=== PATIENT | female | born 1940 | race Caucasian/White ===

== ENCOUNTER 2017-08-07 10:22 | Outpatient (CLI) | payer MEDICARE ==
--- NOTE | 2017-08-07 12:27 | RAD ---
RIGHT HIP TWO VIEWS: HISTORY: Right hip pain. FINDINGS: Mild joint space narrowing and osteophytosis are present. Osteophyte is favored to account for the acute angulation at the superior margin of the femoral neck. The cortical trabeculae are intact acr oss the subcapital level. No acute fracture or dislocation is evident. IMPRESSION: Mild osteoarthritic changes, right hip. POS: [facility]
== END 2017-08-07 10:23 | disposition home or self-care (01) ==
LOC: RAD 10:22
PROVIDERS: ATTEND Family Medicine
DX: M25.551 Pain in right hip (principal); M16.11 Unilateral primary osteoarthritis, right hip

== ENCOUNTER 2017-10-13 11:11 | Emergency (ER) | payer MEDICARE ==
[2017-10-13 11:45] LABS: #Basophils 0.1 thou/uL (0.0-0.2); #Eosinphils 0.3 thou/uL (0.0-0.7); #Lymphocytes 1.7 thou/uL (1.20-3.40); #Monocytes 0.5 thou/uL (0.11-0.59); #Neutrophils 3.1 thou/uL (1.40-6.50); %Basophils 1.3 % (0.0-1.0); %Eosinophils 4.7 % (0.0-10.0); %Lymphocytes 30.6 % (21.0-51.0); %Monocytes 9.2 % (0.0-10.0); Hematocrit 41.8 % (36.0-47.0); Mean Platelet Volume 7.4 fL (7.4-10.4); Red Blood Cell (RBC) Count 4.73 mill/uL (4.20-5.40); White Blood Cell (WBC) Count 5.7 thou/uL (4.8-10.8)
[2017-10-13 12:09] LABS: ALT (SGPT) 26 U/L (8-55); AST (SGOT) 30 U/L (5-34); Alkaline Phosphatase 62 U/L (40-150); Anion Gap 13 mmol/L (10-20); BUN (Urea Nitrogen) 15 mg/dL (9.8-20.1); Bilirubin, Total 0.7 mg/dL (0.2-1.2); CK (CPK) 129 U/L (29-168); Calc. Creatinine Clearance 0 mL/min (70-130); Calcium 10.1 mg/dL (7.8-10.44); Carbon Dioxide 23 mmol/L (23-31); Chloride 102 mmol/L (98-107); Estimated GFR-MDRD 49; Globulin 3.1 g/dL (2.4-3.5); Protein, Total 7.8 g/dL (6.0-8.3)
[2017-10-13 12:12] LABS: Troponin I Less than 0.010 ng/mL (< 0.028)
--- NOTE | 2017-10-13 15:51 | RAD ---
PORTABLE CHEST: 10/13/17 HISTORY: Fell onto right side. COMPARISON: Multiple previous exams. There is a definite discrepancy in the chest x-ray on current study as compared to older exams where it is not possible that these are the same patient. This was thoroughly vetted through registration w sheela rechecked the patient and it is assured that the patient is indeed Katelyn Deras. It is therefore l ikely that multiple old exams were placed under an incorrect patient. The heart size is borderline. There are atherosclerotic changes of the aorta. The lungs are clear of infiltrates. There is a scoliotic change of the spine. IMPRESSION: 1. No active intrathoracic disease. 2. Marked scoliosis. POS: [facility]
== END 2017-10-13 13:09 | disposition home or self-care (01) ==
LOC: ERS 11:11
DX: R00.2 Palpitations (principal); R07.89 Other chest pain; I10 Essential (primary) hypertension; I48.91 Unspecified atrial fibrillation
CPT/HCPCS: 71010; 80053; 82553; 83880; 84484; 85025; 93005; 94760

== ENCOUNTER 2018-01-02 17:02 | Inpatient (IN) | payer MEDICARE ==
[2018-01-02 19:36] LABS: #Lymphocytes 0.7 thou/uL (1.20-3.40); #Monocytes 0.4 thou/uL (0.11-0.59); #Neutrophils 10.8 thou/uL (1.40-6.50); %Basophils 0.2 % (0.0-1.0); %Eosinophils 0.2 % (0.0-10.0); %Monocytes 2.9 % (0.0-10.0); %Neutrophils 90.8 % (42.0-75.0); Hemoglobin 15.3 g/dL (12.0-16.0); Mean Corpuscular HGB CONC 34.7 g/dL (32.0-36.0); Mean Corpuscular Hemoglobin 30.3 pg (27.0-31.0); Mean Corpuscular Volume 87.5 fl (81.0-99.0); Mean Platelet Volume 7.4 fL (7.4-10.4); Platelet Count 311 thou/uL (130-400); RBC Distribution Width 10.8 % (11.5-14.5); Red Blood Cell (RBC) Count 5.06 mill/uL (4.20-5.40); White Blood Cell (WBC) Count 11.9 thou/uL (4.8-10.8)
[2018-01-02 20:03] LABS: ALT (SGPT) 20 U/L (8-55); AST (SGOT) 27 U/L (5-34); Albumin 4.9 g/dL (3.4-4.8); Alkaline Phosphatase 66 U/L (40-150); Anion Gap 16 mmol/L (10-20); BUN (Urea Nitrogen) 16 mg/dL (9.8-20.1); Bilirubin, Total 1.3 mg/dL (0.2-1.2); Calc. Creatinine Clearance 0 mL/min (70-130); Calcium 10.1 mg/dL (7.8-10.44); Carbon Dioxide 27 mmol/L (23-31); Chloride 97 mmol/L (98-107); Estimated GFR-MDRD 54; Globulin 3.1 g/dL (2.4-3.5); Glucose 106 mg/dL (83-110); Lipase 21 U/L (8-78); Potassium 4.4 mmol/L (3.5-5.1); Sodium 136 mmol/L (136-145)
[2018-01-02] MEDS ORDERED: Benzocaine 20% Spray 60 ML CAN ONE (20:51)
[2018-01-02] MEDS ORDERED: Oxymetazoline HCl 0.05% ( 15 ML ) ONE (20:51)
--- NOTE | 2018-01-02 20:52 | RAD ---
ABDOMEN TWO VIEW WITH ONE VIEW CHEST X-RAY 01/02/18 HISTORY: Pain. Evaluate for obstruction. COMPARISON: Chest radiograph from 10/13/17. FINDINGS: There is either an extrapleural density right lung apex or old right sided rib fracture. Extensive S- shaped scoliosis thoracolumbar spine. There are multiple fluid filled levels throughout the abdomen as well as within the left upper quadra nt. No definite free intraperitoneal gas. Gas is seen within the rectal vault. IMPRESSION: Multiple fluid filled levels suggesting either an ileus or a low grade small bowel obstruction. CT ma y be beneficial. POS: [facility]
[2018-01-02 20:58] LABS: Bilirubin Small (Negative); Blood, Urine Negative (Negative); Clarity CLEAR (Clear); Glucose, Urine (Dipstick) Negative (Negative); Leukocyte Small (Negative); Nitrite Negative (Negative); Protein, Urine (Dipstick) Trace mg/dL (Neg-Trace); Specific Gravity, Urine 1.028 (1.002-1.036); Urobilinogen 0.2 mg/dL (0.2-1.0)
[2018-01-02 21:02] LABS: Bacteria/HPF None Seen HPF (None Seen); Hyaline Casts/LPF 0-3 HYALINE CAST LPF (0-3 Hyaline); Pathc Cast-AUWi Flag 0.13 (0-2.49); Squamous Epithelial 0-3 HPF (0-3)
--- NOTE | 2018-01-03 00:01 | HP ---
PRIMARY CARE PHYSICIAN: Dr. Camille August. CHIEF COMPLAINT: Severe abdominal pain and vomiting. HISTORY OF PRESENT ILLNESS: Ms. Deras is a very pleasant 77-year-old female that has a history of hyp ertension and atrial fibrillation. She was in her usual state of health until this morning. She say s she got up to go to the bathroom and noticed some fairly severe pain in her abdomen. She says she passed some gas and it seems like it got better. She went back to sleep and then around 9:00 in the morning, she got up to have breakfast and then said she started having very severe abdominal pain and severe cramping and then by 3:00 p.m., she started having very intense pain and vomited twice at josie e and then she called EMS and they brought her to the emergency room where she vomited once again. S he says that the pain has been very cramping intense pain in the lower abdomen. When asked if she harding s had a bowel movement, she says she did have a bowel movement this morning, but it was very hard sto ol and this was around 7:30 in the a.m. She says that she has had a bowel obstruction before it was back in 2005 she believes when she had a bladder suspension surgery, and at that time it did require surgical correction for the obstruction. She says this was done in [place]. Other symptoms include feeling weak and lightheaded, but no chest pain or shortness of breath. REVIEW OF SYSTEMS: Constitutional: Again, no fevers, no chills, no night sweats, no weight loss. H EENT: She denies any headaches, no dizziness, no visual changes. She has had some lightheadedness. No sore throat, no rhinorrhea, no neck pain, no adenopathy. Pulmonary: No hemoptysis, no cough, no wheezing. Cardiovascular: She denies any chest pain, no shortness of breath, no PND, no orthopnea. Gastrointestinal: As the history of present illness. Genitourinary: No urinary frequency, hematu macairo, no hesitancy. Neurologic: No focal weakness, numbness or seizures. Psychiatric: No symptoms of anxiety or depression. Skin and Integument: No skin changes. No rash. PAST MEDICAL HISTORY: Significant for hypertension and atrial fibrillation. PAST SURGICAL HISTORY: She has had a hysterectomy, tonsillectomy, bladder suspension surgery, and wh at sounds like an exploratory lap and lysis of adhesions. SOCIAL HISTORY: She is a nonsmoker. She occasionally drinks. She is . She lives alone. Ishaan mahan is here accompanied by her daughter. CODE STATUS: DO NOT RESUSCITATE. FAMILY HISTORY: Significant for a father who has prostate cancer. Mother who has heart disease. ALLERGIES: CODEINE which causes nausea. MEDICATIONS: Eliquis 500 mg twice a day. PHYSICAL EXAMINATION: GENERAL: She is alert and oriented. She appears to be in some distress due to the NG tube. She is oriented to person, place and time. VITAL SIGNS: Blood pressure was 120/84, heart rate 87, respiratory rate of 18, temperature is 98.3. HEENT: Pupils are equal, round, and reactive. Extraocular muscles are intact. Sclerae are anicteri c. Throat: There is no erythema, no exudates. NECK: No adenopathy, no bruits. LUNGS: Clear to auscultation. There is no wheezing, no rales. CARDIOVASCULAR: She has a normal S1 and S2. No S3 or S4. No murmurs, clicks or rubs. ABDOMEN: Slightly distended, soft. Positive for bowel sounds. There is no rebound, no guarding and she did have some mild lower abdominal tenderness. EXTREMITIES: There is no clubbing, cyanosis, no edema. NEUROLOGICALLY: The exam is nonfocal. SKIN/INTEGUMENT: There are no skin changes. No rash. LABORATORY AND X-RAY: White blood cell count 11.9, hemoglobin 15.3, hematocrit is 44.2, platelet cou nt is 311. Sodium 136, potassium 4.4, chloride is 97, CO2 is 27, BUN of 16, creatinine 1.0, glucose is 106. Urinalysis was significant for small bilirubin and 4-6 white blood cells. She had an abdomi nal series which was significant for some dilated loops of bowel suggestive of an ileus or low grade small-bowel obstruction. ASSESSMENT AND PLAN: 1. This is a 77-year-old female that presents with severe cramping abdominal pain and vomiting. She has got radiographic evidence of early ileus or small-bowel obstruction. She also has a history of atrial fibrillation, on anticoagulation. She will be admitted to the med/surg floor. She will be le ft n.p.o. We will continue the NG tube with low intermittent suction. Place her on fluid and electr olytes replacement. We will consult General Surgery in the a.m. in the event that she requires surge ry. Repeat an abdominal series film in the morning as well as serial abdominal exams. 2. Atrial fibrillation. Her heart rate is controlled. She appears to be in sinus rhythm. Since sh e will be n.p.o., we will place her on full dose Lovenox for stroke prophylaxis and she will also be placed on IV Pepcid.
[2018-01-03 00:26] VITALS: BMI 21.9
[2018-01-03] MEDS ORDERED: Ondansetron ODT 4 MG TAB SL PRN (00:32)
[2018-01-03] MEDS ORDERED: Sodium Chloride 0.9% 1,000 ML IV SCH ×2 (00:32→15:30)
[2018-01-03] MEDS ORDERED: Ondansetron HCl/PF 4 MG/2 ML Vial IVP PRN ×2 (00:32→00:40)
[2018-01-03] MEDS ORDERED: Lorazepam 2 MG/ML VIAL SLOW IVP PRN (00:40)
[2018-01-03] MEDS ORDERED: hydrALAZINE 20 MG/ML VIAL SLOW IVP PRN (00:40)
[2018-01-03] MEDS: NS 0.9% w/ 40 MEQ KCL 1,000 ML IV SCH ×2 (01:55→11:07)
[2018-01-03 05:17] LABS: #Monocytes 0.5 thou/uL (0.11-0.59); %Basophils 0.4 % (0.0-1.0); %Eosinophils 0.1 % (0.0-10.0); %Monocytes 6.4 % (0.0-10.0); %Neutrophils 80.2 % (42.0-75.0); Hemoglobin 14.1 g/dL (12.0-16.0); Mean Corpuscular Hemoglobin 30.2 pg (27.0-31.0); Mean Corpuscular Volume 88.9 fl (81.0-99.0); Mean Platelet Volume 7.4 fL (7.4-10.4); Platelet Count 296 thou/uL (130-400); RBC Distribution Width 10.9 % (11.5-14.5); Red Blood Cell (RBC) Count 4.68 mill/uL (4.20-5.40); White Blood Cell (WBC) Count 7.5 thou/uL (4.8-10.8)
[2018-01-03 05:31] LABS: Anion Gap 13 mmol/L (10-20); BUN (Urea Nitrogen) 15 mg/dL (9.8-20.1); Calc. Creatinine Clearance 47 mL/min (70-130); Carbon Dioxide 25 mmol/L (23-31); Chloride 102 mmol/L (98-107); Estimated GFR-MDRD 66; Glucose 88 mg/dL (83-110); Potassium 4.7 mmol/L (3.5-5.1); Sodium 135 mmol/L (136-145)
[2018-01-03] MEDS: Enoxaparin Sodium 60 MG/0.6 ML SYRINGE SC SCH ×2 (08:27→20:56)
[2018-01-03] MEDS: Famotidine/PF 20 mg/2ml Vial SLOW IVP SCH ×2 (08:28→20:54)
[2018-01-03] MEDS ORDERED: MD-Gastroview 120 ML BOT ONE (11:57)
--- NOTE | 2018-01-03 13:49 | RAD ---
GASTROGRAFIN SMALL BOWEL FOLLOW THROUHG. INDICATION: There Is partial small bowel obstruction. COMPARISON: Acute abdominal series on 01/02/18. FINDINGS: [employer] image demonstrates gastric catheter projecting over the region of the gastric fundus. There ar e gas-filled dilated loops of small bowel within the central and left upper aspect of the abdomen. T here is gas present within the colon and rectum. There is a mild amount of retained stool. There ar e suture anchors present with promontory. There is dextroscoliosis of the lumbar spine. Subsequent images were obtained after administration of Gastrografin through the patient's gastric ca theter. Images were acquired for 1 hour time period. Contrast was seen to flow through the dilated loops of small bowel into normal-appearing distal small bowel loops and was seen at the level of the colon by the 1-hour time period. IMPRESSION: Findings consistent with a mild partial small bowel obstruction. POS: [facility]
--- NOTE | 2018-01-03 15:25 | PDOC.PN ---
- Subjective Encounter Start Date: 01/03/18 Encounter Start Time: 15:24 Pt seen for followup re; small bowel obstruction. feels better. had a bowel movement earlier today. On and off pain across upper abdomen. - Objective Resuscitation Status: Resuscitation Status DNR:Do Not Resuscitate MAR Reviewed: Yes Vital Signs & Weight: Vital Signs (12 hours) Temp Pulse Resp BP Pulse Ox 01/03/18 13:34 98.1 F 79 16 121/71 96 01/03/18 12:00 97.9 F 79 16 126/72 91 L 01/03/18 08:27 98.2 F 80 16 120/69 93 L 01/03/18 08:00 98.2 F 80 16 01/03/18 04:00 97.9 F 85 18 98/59 L 94 L Weight Weight 120 lb 2.431 oz Result Diagrams: 01/03/18 04:30 01/03/18 04:30 Phys Exam - Physical Examination Constitutional: NAD HEENT: moist MMs Neck: supple Respiratory: clear to auscultation bilateral Cardiovascular: RRR Gastrointestinal: soft Neurological: moves all 4 limbs Psychiatric: normal affect Dx/Plan (1) Bowel obstruction Code(s): K56.609 - UNSP INTESTNL OBST, UNSP TO PARTIAL VERSUS COMPLETE OBST Status: Acute (2) HTN (hypertension) Code(s): I10 - ESSENTIAL (PRIMARY) HYPERTENSION Status: Chronic (3) Afib Code(s): I48.91 - UNSPECIFIED ATRIAL FIBRILLATION Status: Chronic - Plan * . Clinically improving. Started on clear fluid diet. Decrease IV fluids. Continue Lovenox. Monitor vital signs, titrate antihypertensives as needed. Review of Systems - Review of Systems Respiratory: negative: Cough, Dry, Shortness of Breath, Hemoptysis, SOB with Excertion, Pleuritic Pain, Sputum, Wheezing Cardiovascular: negative: chest pain, palpitations, orthopnea, paroxysmal nocturnal dyspnea, edema, light headedness Gastrointestinal: Nausea, Abdominal Pain. negative: Vomiting, Diarrhea, Constipation, Melena, Hematochezia - Medications/Allergies Allergies/Adverse Reactions: Allergies Allergy/AdvReac Type Severity Reaction Status Date / Time No Known Allergies Allergy Verified 01/03/18 02:06 Medications: Current Medications Enoxaparin Sodium (Lovenox) 60 mg SC 0900,2100 [facility] Last Admin: 01/03/18 08:27 Dose: 60 mg Famotidine (Pepcid) 20 mg SLOW IVP Q12HR [facility] Last Admin: 01/03/18 08:28 Dose: 20 mg Hydralazine HCl (Apresoline) 10 mg SLOW IVP Q4H PRN PRN Reason: Systolic BP > 180 Potassium Chloride/Sodium Chloride (Ns 0.9% W/ 40 Meq Kcl) 1,000 mls @ 100 mls/ hr IV .Q10H [facility] Last Admin: 01/03/18 11:07 Dose: Not Given Lorazepam (Ativan) 0.5 mg SLOW IVP Q4H PRN PRN Reason: Anxiety/Agitation Ondansetron HCl (Zofran) 4 mg IVP Q6H PRN PRN Reason: Nausea/Vomiting Sodium Chloride (Flush - Normal Saline) 10 ml IVF Q12HR [facility] Last Admin: 01/03/18 08:29 Dose: 10 ml Sodium Chloride (Flush - Normal Saline) 10 ml IVF PRN PRN PRN Reason: Saline Flush
--- NOTE | 2018-01-03 15:56 | RAD ---
KUB 01/03/18 INDICATION: Abdominal pain. COMPARISON: Prior small bowel series dated 01/03/18. FINDINGS: The previously administered gastrografin contrast is now seen at the level of the rectum. There are a few residual opacified loops of small bowel within the region of ileum. There is some retained contr ast seen within the region of the colon. The extent of the dilated loop of small bowel within the nguyễn tral aspect of the abdomen and left upper quadrant of the abdomen appears similar. IMPRESSION: 1. Previously administered gastrografin contrast now at the level of the rectum. 2. Stable mildly prominent gas filled loop of small bowel within the central abdomen consistent with mild partial small bowel obstruction. POS: [facility]
--- NOTE | 2018-01-03 17:02 | CON ---
DATE OF CONSULTATION: 01/03/2018 REQUESTING PHYSICIAN: Dr. Bhupendra Nayak. HISTORY OF PRESENT ILLNESS: This is a 77-year-old woman who presented to the hospital with a complai nt of insidious onset severe abdominal pain, which was described as crampy without radiation. Pain was initially rated at 07/10, but intensified to 10/10. The patient passed a little bit of gas and had one emesis, felt better. A few hours later, the pain intensified. As a result, the patient was brought to the Emergency Depar tment for further evaluation. She arrived to the Emergency Department reporting severe abdominal pain and has had 2 additional bout s of emesis. The patient denied any fever or chills. At the time of my evaluation, she is awake and alert, reporting no significant abdominal pain. Nasogastric tube, which was placed returned moderate amount of non-bilious effluent. PAST MEDICAL HISTORY: Significant for essential hypertension and chronic atrial fibrillation. SURGICAL HISTORY: Pertinent for hysterectomy, bladder suspension surgery, childhood tonsillectomy an d adenoidectomy. The patient also is status post exploratory laparotomy with adhesiolysis for small-bowel obstruction in the distant past. SOCIAL HISTORY: She denies any cigarette smoking, or illicit drug abuse. She admits to occasional intake of ethanol in moderate amounts. She lives independently. FAMILY HISTORY: Noncontributory for this patient's age. I have reviewed all her pre-hospitalization medications. ALLERGIES: The patient denies any known drug allergies. REVIEW OF SYSTEMS: Ten-point review of systems essentially unremarkable except for as stated in past medical history and chief complaint. PHYSICAL EXAMINATION: GENERAL: This reveals a 77-year-old normally developed woman who is coherent and interactive and sunny ears stated age. The patient is alert and oriented x3. She appears to be in no acute distress at th e time of my evaluation. VITAL SIGNS: Today includes blood pressure 120/69, pulse 80, respiratory rate is 16, temperature 98. 2 degrees Fahrenheit and oxygen saturation 93% on room air. HEENT: Reveals normocephalic and atraumatic. NECK: She has no jugular venous distention noted. HEART: Reveals irregular rate and irregular rhythm. LUNGS: Clear to auscultation bilaterally. Breathing regular and unlabored. ABDOMEN: Soft and moderately distended, but nontender to palpation. Liver and spleen are nonpalpabl e below costal margin. Clearly, she has no gross peritoneal signs on examination. EXTREMITIES: Reveals 2+ radial and pedal pulses bilaterally. No ankle edema is present. NEUROLOGIC: Reveals no focal deficits present. PERTINENT LABORATORY FINDINGS: Today includes a CBC with 7500 in contrast to 11,900 yesterday. Hemoglobin and hematocrit today are stable at 14.1 and 41.6 respectively. Platelet count is also stable at 296,000. Metabolic profile: Sodium 135, potassium is 4.7, chloride is 102, bicarbonate is 25, BUN 15, creatin ine is 0.84 and glucose 88. IMAGING DATA: I have personally reviewed the CT scan of abdomen and pelvis, which reveals multiple d istended loops of small bowel with no significant clear transition zone. There is air in the colon and rectum. I have also reviewed the small bowel follow through, which I obtained following the CT scanning. Thi s clearly does not show any evidence of bowel obstruction as the contrast is now in the rectum at sunny roximately 2-1/2 hours. IMPRESSION: Resolved acute partial small-bowel obstruction. PLAN: There is no acute surgical indication for this patient at this time. I have discontinued the nasogastric tube. The patient was initiated on clear liquid diet, which will be advanced as tolerated. Thank you again Dr. Nayak for allowing me the opportunity to participate in the care of this patient .
[2018-01-04 07:50] VITALS: BP 128/77; TEMP 98.5
[2018-01-04] MEDS: Enoxaparin Sodium 60 MG/0.6 ML SYRINGE SC SCH (08:39)
[2018-01-04] MEDS: Famotidine/PF 20 mg/2ml Vial SLOW IVP SCH (08:40)
[2018-01-04] MEDS ORDERED: Polyethylene Glycol 3350 17 GM Packet PO SCH (09:00)
--- NOTE | 2018-01-04 10:19 | PRG ---
DATE OF SERVICE: 01/04/2018 SUBJECTIVE: Ms. Deras is awake and alert. She was admitted with abdominal pain. I was asked to see the patient to exclude small-bowel obstruction. The patient had unremarkable acute small bowel follo w through. She endorses multiple loose bowel movements overnight. Currently, she denies any abdomin al pain. OBJECTIVE: VITAL SIGNS: Includes blood pressure 128/77, pulse 65, respiratory rate 16, temperature is 98.5 degr ees Fahrenheit, oxygen saturation 95% on room air. HEENT: Reveals normocephalic and atraumatic. Pupils equal, round, and reactive to light and accommo dation. HEART: Reveals regular rate and rhythm. No murmurs or gallops auscultated. CHEST: Clear to auscultation bilaterally. Breathing regular and unlabored. ABDOMEN: Soft, nontender, nondistended. Bowel sounds in all four quadrants appear normoactive. IMPRESSION: Resolved acute partial small-bowel obstruction versus resolved gastroenteritis. PLAN: There remains no acute surgical indication for this patient at this time. Diet will be advanc ed to regular. The patient may be discharged home from a general surgery standpoint. Above findings and plan discussed with the patient and her daughter at bedside. They both indicated understanding of information given. I answered their questions.
--- NOTE | 2018-01-04 19:20 | DIS ---
PRIMARY CARE PHYSICIAN: Camille August M.D. DATE OF ADMISSION: 01/02/2018 DATE OF DISCHARGE: 01/04/2018 DISCHARGE DIAGNOSES: Ileus versus low grade small-bowel obstruction. CONSULTATIONS DURING THIS HOSPITALIZATION: General Surgery, Dr. To Rondon. CONDITION OF PATIENT AT THE TIME OF DISCHARGE: Stable. I assessed Ms. Deras on the day of discharge. She denies any chest pain or shortness of breath. She is having bowel movements. Denies fevers or chills. Vital signs are stable. S1 and S2 are heard, regular. Lungs are clear to auscultation belkys aterally. DISCHARGE MEDICATIONS: Apixaban 5 mg 2 times a day, atorvastatin 10 mg at bedtime, Os-Alex plus vitam in D 500 mg daily, vitamin D3 1000 units daily, Multaq 400 mg 2 times a day, lisinopril 5 mg daily, C entrum Silver 1 tablet daily. Please note that no change was made to her preadmission home medicatio ns. HOSPITAL COURSE: Ms. Deras is a pleasant 77-year-old lady, who was admitted to [facility] for ileus versus low grade bowel obstruction. She was seen by General Surgery service. She was managed conservatively. She started tolerating diet and was having bowel movements. General Surgery Service cleared her for discharge. She is being discharged home in a stable condition. She is advised to follow up with her primary care physician in 3-5 days. Many thanks for allowing me to participate in your patient's care. Please feel free to contact me if any questions or concerns. On 01/03/2018, she had a sodium of 135, potassium 4.7, creatinine 0.84, white count 7500, hemoglobin 14.1, and platelet count 296,000. DISCHARGE DESTINATION: Home. TOTAL AMOUNT OF TIME SPENT COORDINATING THIS DISCHARGE: 22 minutes.
== END 2018-01-04 16:24 | disposition home or self-care (01) | DRG 390 ==
LOC: ERS 17:02 → T4-A 22:45
PROVIDERS: ADMIT Internal Medicine; ATTEND Internal Medicine
DX: K56.600 Partial intestinal obstruction, unspecified as to cause (principal); I48.2 Chronic atrial fibrillation; I10 Essential (primary) hypertension; Z66 Do not resuscitate; Z88.5 Allergy status to narcotic agent; Z79.01 Long term (current) use of anticoagulants
CPT/HCPCS: 36415; 74018; 74022; 74250; 80048; 80053; 81003; 81015; 83690; 85025; 96361; 96374; A4216; J1650; J2270; S0028

== ENCOUNTER 2018-01-05 23:35 | Inpatient (IN) | payer MEDICARE ==
[2018-01-06] MEDS ORDERED: Pantoprazole 40 MG VIAL ONE (00:11)
[2018-01-06 00:41] LABS: #Lymphocytes 1.1 thou/uL (1.20-3.40); #Monocytes 1.2 thou/uL (0.11-0.59); %Basophils 0.3 % (0.0-1.0); %Eosinophils 0.1 % (0.0-10.0); %Lymphocytes 8.7 % (21.0-51.0); %Monocytes 9.8 % (0.0-10.0); %Neutrophils 81.2 % (42.0-75.0); Mean Corpuscular HGB CONC 34.8 g/dL (32.0-36.0); Mean Corpuscular Volume 89.1 fl (81.0-99.0); Mean Platelet Volume 7.6 fL (7.4-10.4); Platelet Count 243 thou/uL (130-400); RBC Distribution Width 10.6 % (11.5-14.5); Red Blood Cell (RBC) Count 2.89 mill/uL (4.20-5.40); White Blood Cell (WBC) Count 12.3 thou/uL (4.8-10.8)
[2018-01-06 00:47] LABS: INR-International Normal Ratio 1.2; Prothrombin Time 15.7 SEC (12.0-14.7)
[2018-01-06 00:48] LABS: PTT 21.6 SEC (22.9-36.1)
[2018-01-06 01:04] LABS: ALT (SGPT) 12 U/L (8-55); AST (SGOT) 19 U/L (5-34); Albumin 3.2 g/dL (3.4-4.8); Alkaline Phosphatase 40 U/L (40-150); Anion Gap 14 mmol/L (10-20); BUN (Urea Nitrogen) 36 mg/dL (9.8-20.1); Bilirubin, Total 0.6 mg/dL (0.2-1.2); CK (CPK) 51 U/L (29-168); Calc. Creatinine Clearance 0 mL/min (70-130); Calcium 7.9 mg/dL (7.8-10.44); Carbon Dioxide 21 mmol/L (23-31); Chloride 103 mmol/L (98-107); Estimated GFR-MDRD 81; Globulin 1.9 g/dL (2.4-3.5); Glucose 144 mg/dL (83-110); Protein, Total 5.1 g/dL (6.0-8.3); Sodium 134 mmol/L (136-145)
[2018-01-06 01:22] LABS: CKMB 2.2 ng/mL (0-6.6); Troponin I 0.037 ng/mL (< 0.028)
[2018-01-06] MEDS ORDERED: Ondansetron HCl/PF 4 MG/2 ML Vial IVP PRN ×2 (02:16→19:47)
[2018-01-06] MEDS ORDERED: Milk Of Magnesia 30 ML UDCUP PO PRN (02:16)
[2018-01-06] MEDS ORDERED: HYDROcodone/Acetaminophen 5/325 mg Tablet PO PRN (02:16)
[2018-01-06] MEDS ORDERED: Acetaminophen 325 MG TAB PO PRN (02:16)
--- NOTE | 2018-01-06 03:03 | HP ---
PRIMARY CARE PHYSICIAN: Camille August M.D. CHIEF COMPLAINT: Diarrhea and bloody vomiting. HISTORY OF PRESENT ILLNESS: This is a 78-year-old female with a past medical history of hypertension and atrial fibrillation, who was discharged from hospital on 01/04/2018 after presented with ileus, had an NG tube placed and whose ileus resolves with serial imaging and contrast as well as the NG tub e, who presented to the hospital today with a 3-day history of diarrhea which consistently has change d from brown to maroon to very dark "almost black." She has had multiple episodes and on Sunday trevor mahan said she vomited several times and eventually the ambulance was called because she had lightheadedn ess, easily fatigued, and had a near syncopal episode. While in the ambulance, she had one episode o f hematemesis. There is no abdominal pain, no nausea. She has no urinary symptoms. No chest pain, no shortness of breath. PAST MEDICAL HISTORY: Hypertension, atrial fibrillation on Eliquis. PAST SURGICAL HISTORY: Hysterectomy, tonsillectomy, bladder suspension surgery, ? exploratory laparo cameron and lysis of adhesions. SOCIAL HISTORY: She does not smoke cigarettes, occasionally drinks alcohol. No illicit drug use. FAMILY HISTORY: Reviewed: Noncontributory. ALLERGIES: No known allergies. REVIEW OF SYSTEMS: Constitutional: No fevers, chills, night sweats or weight loss. HEENT: No head ache, dizziness, changes in vision. General: Positive for lightheadedness, easily fatigued. Pulmon harish: No cough, shortness of breath, wheezing. Cardiovascular: Negative. Gastrointestinal: Per HP I. Genitourinary: No frequency, hematuria or urgency. Neurologic: Positive for near syncope. Ski n: Negative. Psychiatric: Negative. Allergy/immunology: Negative. Hematology: Negative. PHYSICAL EXAMINATION: VITAL SIGNS: Her vital signs are stable. GENERAL: Alert and well-oriented. Not in any distress. HEENT: PERRLA, EOMI, pale, anicteric. Normocephalic, atraumatic. NECK: Supple. Normal range of movement. LUNGS: Bilateral vesicular breath sounds. No wheezes or rales. CARDIOVASCULAR: S1 and S2 only. Slight tachycardia. No murmurs, rubs or gallops. ABDOMEN: Slightly distended with hyperactive bowel sounds. No hepatosplenomegaly, mild tenderness, diffuse, but no rebound tenderness or guarding. EXTREMITIES: No edema. Moving all extremities spontaneously. NEUROLOGIC: Alert and well oriented. No focal deficits. SKIN: No rashes. Warm, dry, and well-perfused. LABORATORY DATA: Hemoglobin 9 "reduced from 14 on 01/03/2018," WBC 12.3, platelets 243. Chemistry l argely unremarkable, but BUN is 36. Troponin 0.037. Hemoccult blood positive. CT scan of the abdom en taking, formal report pending. ASSESSMENT AND PLAN: 1. Gastrointestinal bleed. She likely has an upper GI bleed as she has hematemesis and melena, alth ough lower GI bleed can also not be ruled out. The bleed could have been exacerbated by the patient being on Xarelto and also as she had recent NG tube placed which have caused some GI irritation. She has been made n.p.o. We will be transfused 1 unit of PRBC given IV fluids. GI will be consulted an d her Xarelto will be held. We will also make sure there is at least 2 wide bore intravenous access for this patient. We will follow up on CT abdomen and trend hemoglobin. She will be admitted to the IMCU. 2. Hypertension. Blood pressure is currently controlled. Due to ongoing gastrointestinal bleed, we will hold antihypertensives and monitor blood pressure closely. 3. Atrial fibrillation on Eliquis. Eliquis has been held and heart rates will be closely monitored. 4. Prophylaxis, sequential compression devices.
--- NOTE | 2018-01-06 03:09 | PDOC.EVN ---
Event Note - Event Note Event Note: CT abdomen verbal report with small bowel obstruction. PAtient remains NPO and General Surgery will be consulted.
[2018-01-06] MEDS: Sodium Chloride 0.9% 1,000 ML IV SCH ×3 (04:00→21:02)
[2018-01-06 04:14] LABS: #Basophils 0.1 thou/uL (0.0-0.2); #Neutrophils 8.8 thou/uL (1.40-6.50); %Basophils 0.6 % (0.0-1.0); %Eosinophils 0.1 % (0.0-10.0); %Lymphocytes 8.7 % (21.0-51.0); %Monocytes 9.3 % (0.0-10.0); %Neutrophils 81.3 % (42.0-75.0); Hemoglobin 7.9 g/dL (12.0-16.0); Mean Corpuscular HGB CONC 35.1 g/dL (32.0-36.0); Mean Corpuscular Hemoglobin 31.1 pg (27.0-31.0); Mean Corpuscular Volume 88.6 fl (81.0-99.0); Mean Platelet Volume 7.8 fL (7.4-10.4); Platelet Count 228 thou/uL (130-400); RBC Distribution Width 10.7 % (11.5-14.5); Red Blood Cell (RBC) Count 2.55 mill/uL (4.20-5.40); White Blood Cell (WBC) Count 10.9 thou/uL (4.8-10.8)
[2018-01-06 04:36] LABS: Anion Gap 11 mmol/L (10-20); BUN (Urea Nitrogen) 35 mg/dL (9.8-20.1); Calc. Creatinine Clearance 58 mL/min (70-130); Calcium 7.5 mg/dL (7.8-10.44); Carbon Dioxide 23 mmol/L (23-31); Chloride 102 mmol/L (98-107); Estimated GFR-MDRD 88; Glucose 120 mg/dL (83-110); Potassium 4.2 mmol/L (3.5-5.1); Sodium 132 mmol/L (136-145)
[2018-01-06] MEDS ORDERED: Iopamidol 370 76% 50 ML VIAL FS ONE (07:34)
[2018-01-06] MEDS ORDERED: ISOVUE-370 76%-LOCM 1 ML ONE (07:34)
[2018-01-06 08:58] LABS: Hemoglobin 10.1 g/dL (12.0-16.0); Platelet Count 207 thou/uL (130-400)
--- NOTE | 2018-01-06 09:31 | CT ---
PRELIMINARY REPORT/[facility]/EMERGENCY AFTER HOURS PROCEDURE: EXAM: CT Abdomen and Pelvis With Intravenous Contrast CLINICAL HISTORY: 78 years old, female; Nausea / vomiting; Er 12; d/c'd from hospital yesterday for ileus. Today weak a ll day, near syncope, melena, dark maroon emesis, nausea, vomiting. Pale on arrival, hd stable. Surgi jacoby HX: bladder and rectal suspension, hysterectomy TECHNIQUE: Axial computed tomography images of the abdomen and pelvis with intravenous contrast. Coronal reforma tted images were created and reviewed. CONTRAST: 85 mL of isovue 370 administered intravenously. COMPARISON: No relevant prior studies available. FINDINGS: Lower thorax: Trace bilateral pleural fluid. Bilateral posterior lung base minimal consolidation and/ or atelectasis. Minimal pericardial fluid. ABDOMEN: Liver: Unremarkable. No mass. Gallbladder and bile ducts: Unremarkable. No calcified stones. No ductal dilation. Pancreas: Unremarkable. No mass. No ductal dilation. Spleen: Unremarkable. No splenomegaly. Adrenals: Unremarkable. No mass. Kidneys and ureters: Unremarkable. No solid mass. No hydronephrosis. Stomach and bowel: Dilated jejunal and proximal ileal small bowel loops measuring up to 3.7 cm with t ransition zone within the right lower quadrant. Nondilated colon. No mucosal thickening. Appendix: No findings to suggest acute appendicitis. PELVIS: Bladder: Unremarkable. No mass. Reproductive: Status post hysterectomy. ABDOMEN and PELVIS: Intraperitoneal space: Small amount of free fluid adjacent to the right liver. No free air. Bones/lola ints: Spinal degenerative changes. Mild scoliosis. No acute fracture. No dislocation. Soft tissues: Unremarkable. Vasculature: Unremarkable. No abdominal aortic aneurysm. Lymph nodes: Unremarkable. No enlarged lymph nodes. IMPRESSION: 1. SMALL BOWEL OBSTRUCTION: Dilated jejunal and proximal ileal small bowel loops measuring up to 3.7 cm with transition zone within the right lower quadrant. 2. Small amount of free fluid adjacent to the right liver. 3. Trace bilateral pleural fluid. Bilateral posterior lung base minimal consolidation and/or atelecta sis. Thank you for allowing us to participate in the care of your patient. Dictated and Authenticated by: Tyrone Solorzano MD 01/06/2018 2:47 AM Central Time ([place] & [place]) FINAL REPORT CT ABDOMEN AND PELVIS WITH ORAL AND IV CONTRAST: Date: 01/06/18 FINDINGS/IMPRESSION: I agree with the preliminary report given by Delmy. POS: [facility]
[2018-01-06] MEDS: Pantoprazole 40 MG VIAL IVP SCH ×2 (09:46→21:01)
--- NOTE | 2018-01-06 10:43 | CON ---
DATE OF CONSULTATION: 01/06/2018 REASON FOR CONSULTATION: IMCU placement. HISTORY OF PRESENT ILLNESS: The patient is a pleasant 78-year-old female who was able to give her ow n history without limitation. I have also obtained information from reading the chart. She was just discharged from the hospital 2 days ago after being here for small-bowel obstruction. She went home and did not do well. She was having difficulty with vomiting, occasionally some bright red blood. She also developed profuse diarrhea, some of it bloody. She had a fainting type spell. Her family c alled primary care who has suggested that she take some Gatorade. Symptoms continued to worse and jeffrey steve has subsequently brought the patient into the emergency room. The patient required 1 unit of bl ood overnight. She was placed in IMC because of necessity of the transfusion. PAST MEDICAL HISTORY: 1. Paroxysmal atrial fibrillation. 2. Hypertension. PAST SURGICAL HISTORY: 1. She has had a bladder suspension in the past. She also had some type of volvulus during that [place] which required exploratory laparotomy and reduction of volvulus. 2. Hysterectomy. 3. Tonsillectomy. SOCIAL HISTORY: Nonsmoker, does not consume alcohol, does not use illicit drugs. FAMILY MEDICAL HISTORY: Unremarkable. ALLERGIES: None. REVIEW OF SYSTEMS: Twelve point review of systems is negative except for that listed in history of p resent illness. MEDICATIONS PRIOR TO ADMISSION: Zestril, calcium carbonate plus D, Eliquis, Multaq, vitamin D3, ator vastatin, and Centrum. PHYSICAL EXAMINATION: VITAL SIGNS: Temperature 98.5, pulse 104, respirations 18, O2 sat 95% on room air, blood pressure 12 7/61. GENERAL: She is awake and alert, in no distress. HEENT: Pupils react. Sclerae are anicteric. Oropharynx clear. NECK: Without adenopathy or JVD, no bruits. LUNGS: Clear to auscultation without wheezing. CARDIAC: S1 and S2 regular with 2/6 systolic murmur. ABDOMEN: Soft, nontender. She has hyperactive bowel sounds. EXTREMITIES: No clubbing, cyanosis, or edema. NEUROLOGIC: Grossly intact. SKIN: Shows no bruising or rashes. PSYCHIATRIC: She is alert and oriented x3. LABORATORY DATA: Hemoglobin 10, hematocrit 28.4, platelet count 207. INR 1.2. Sodium 132, potassiu m 4.2, chloride 102, CO2 23, BUN 35, creatinine 0.6, and glucose 120. ASSESSMENT: 1. CT shows partial small-bowel obstruction. 2. Gastrointestinal bleeding. PLAN: The patient is hemodynamically stable. She can be transferred out to telemetry floor. No act momo pulmonary or critical care issues. Appropriate General Surgery and GI consultation have been ord ered by the Hospitalist Group. Please recall if further assistance is needed.
--- NOTE | 2018-01-06 13:20 | PDOC.EVN ---
Event Note - Event Note Event Note: Chart reviewed. Pt seen. Will follow.
[2018-01-06] MEDS ORDERED: Lidocaine 1% PF 5 ML VIAL ONE (15:50)
[2018-01-06] MEDS ORDERED: Succinylcholine Chloride 20 MG/ML 10 ml SYRINGE FS ONE (15:50)
[2018-01-06] MEDS ORDERED: Propofol 200 MG/20 ML VIAL ONE (15:50)
--- NOTE | 2018-01-06 19:04 | RAD ---
SUPINE ABDOMEN: Date: 01/06/18 HISTORY: Small bowel obstruction. Assess NG tube placement. FINDINGS/IMPRESSION: NG tube passes through the EG junction and coils in the upper stomach. The tip is positioned superior ly in the upper gastric fundus under the left hemidiaphragm. Would suggest repositioning to position the tip in the region of the gastric antrum. Nonspecific small bowel gas is again seen. POS: [facility]
[2018-01-06] MEDS ORDERED: Promethazine HCl 25 MG/ML VIAL SLOW IVP PRN (19:47)
[2018-01-06] MEDS ORDERED: Promethazine HCl 25 MG/ML VIAL IM PRN (19:47)
--- NOTE | 2018-01-06 20:13 | RAD ---
SUPINE ABDOMEN: Date: 01/06/18 HISTORY: Assess NG tube placement. FINDINGS/IMPRESSION: Tip of the NG tube now overlies the right abdomen in the region of the gastric antrum. There is again noted to be evidence of small bowel dilatation. No other interval change. POS: [facility]
--- NOTE | 2018-01-06 20:33 | HP ---
HISTORY OF PRESENT ILLNESS: Katelyn Deras is a 78-year-old white female, who was recently hospitalize d and discharged 01/04/2018. At that time, she had a small bowel follow-through, on 01/03/2018, noti ng mild partial small-bowel obstruction. There is some distended proximal bowel loops. The patient states that at home, she began having abdominal pain, distention, nausea, and vomiting. She had a bl oody stool. She was seen in the hospital 01/06/2018, readmitted and CAT scan revealed changes consis tent with a high grade bowel obstruction. She remained hemodynamically stable. Hemoglobin 10, hemat ocrit 28, white count 10. The patient reports having had a colonoscopy in [place] five years ago. She states this was normal. She has not had any bowel problems in the past. She did have a hysterectomy and pubic sling for incontinence in the past. After her sling surgery, s he required laparotomy for bowel obstruction, but did not have a resection. This hospitalization, so far since being admitted, she has not passed stool nor she had any more vomiting, but her abdomen re charles distended. On exam, it is tympanitic. I have asked the nurses to place an NG tube, 18 Gib[place] to 65 cm, and confirmatory x-ray after placement and follow up x-rays tomorrow. ALLERGIES: CODEINE. TOBACCO: None. ALCOHOL: Rarely. PAST SURGICAL HISTORY: Hysterectomy, tonsillectomy, bladder suspension with sling, postoperatively r equiring laparotomy for bowel obstruction, no resection. PAST MEDICAL HISTORY: Hypertension, atrial fibrillation on Eliquis. She is not taking Eliquis since Sunday. Today is Sunday. REVIEW OF SYSTEMS: Noncontributory otherwise. She does have atrial fibrillation. She is followed b y Dr. Mclaughlin. She has recently had an echocardiogram and a nuclear cardiac stress test that were normal. There were to follow up Dr. Mclaughlin, but hospitalizations interfered with a followup. PHYSICAL EXAMINATION: VITAL SIGNS: Height 5 foot, weight 215 pounds, 21 BMI, temperature 98.9 degrees, heart rate 97, bloo d pressure 110/53, respiratory rate 14. LUNGS: Clear to auscultation. CARDIAC: Regular rate and rhythm without murmur or gallop. ABDOMEN: Soft, bowel sounds present, distended, tympanitic, midline infraumbilical area and infraumb ilical wound well healed. EXTREMITIES: Unremarkable. LABORATORY DATA: White count 10, hemoglobin 10. Potassium 5.3, sodium 132, carbon dioxide 23, BUN 3 5 (abnormal for her), creatinine 0.65. ASSESSMENT AND PLAN: 1. Small-bowel obstruction. CAT scan suggests this, we would place an NG tube, 18 Gib[place] to 65 cm, obtain a confirmatory x-ray for placement and repeat x-rays in the morning. I have discussed this wi th the patient and the family and explained the situation since she had a small bowel follow-through recently and despite this, she continues with a bowel obstruction. It is likely that she would benef it from a laparoscopy or laparotomy for adhesiolysis. She did have some blood per rectum. Family re ports that it is quite a bit, she had a colonoscopy in [place] about 4-5 years ago. GI consultation is pending. She could have a proctoscopy to look at that. Inspection of her perianal area reveals that is normal. She has not had any pain in the area, has not had any prior history of bleeding. We will await GI input. It is possible she could after NG tube decompression be considered for laparos copic possible open laparotomy for adhesiolysis. We will await follow up x-rays and consultants inpu t. 2. Atrial fibrillation. Today is Sunday. She has not had her Eliquis since Sunday. We will beg in [facility].
[2018-01-06] MEDS: Enoxaparin Sodium 40 MG/0.4 ML SYRINGE SC SCH ×2 (21:01→21:03)
--- NOTE | 2018-01-06 21:29 | OP ---
DATE OF PROCEDURE: 01/06/2018 INDICATION FOR PROCEDURE: Hematemesis, melena. PROCEDURE: Esophagogastroduodenoscopy with NG tube placement. DESCRIPTION OF PROCEDURE: After the risks and benefits of the procedure were explained to the patien t including risks of infection, bleeding, perforation, reaction to anesthesia, and/or pain. Informed consent was obtained. The patient was then taken to the endoscopy suite, where general anesthesia w as administered via anesthesia support. The standard gastroscope was then introduced into the mouth with intubation of the esophagus, stomach, and proximal small intestine with the findings listed belo w. The patient tolerated the procedure well with no immediate perioperative complications. FINDINGS: ESOPHAGUS: Normal appearing mucosa was seen in the proximal mid esophagus, a 4-5 mm clean based ulce ration was seen at the gastroesophageal junction without any high risk stigmata of bleeding, immediat reji surrounding this ulceration was a circular patch of significantly erythematous mucosa measuring a pproximately 4 cm in diameter surrounding this particular lesion. There was no observed erosions or mass lesions associated with this particular lesion. STOMACH: Normal appearing mucosa was seen in the cardia distal body, antrum, and incisura. However, 2 small spots of significantly increased erythema were seen in the gastric fundus/body measuring sunny roximately 3-4 mm in diameter without any evidence of erosions, ulcerations, or mass lesions. No abn ormalities were seen on gastric retroflexion. DUODENUM: Normal appearing mucosa was seen in both the duodenal bulb and second portion of the duode num. There was no evidence of erosions, ulcerations, or mass lesions. IMPRESSION: 1. A 4-5 mm ulceration surrounded by significantly increased erythema measuring 4 mm in diameter was seen at the gastroesophageal junction consistent with prior NG tube trauma. 2. Two additional red spots measuring 3-4 mm in diameter were seen in the gastric fundus/body, also consistent with prior NG tube trauma. 3. Otherwise, normal upper endoscopy. RECOMMENDATIONS: 1. The patient will need repeat NG tube placement with the side port and distal port well passed the GE junction to prevent any further trauma. This was placed during this examination today, but will need chest x-ray to confirm positioning. 2. Would continue to trend H and H, and transfuse as necessary to maintain an H and H of 7/21. 3. Would continue patient on PPI 40 mg twice daily. 4. Will defer patient with imaging consistent with small-bowel obstruction. We will defer managemen t of this condition to the General Surgery Service. 5. Would avoid any anticoagulation for at least the next 48 hours.
--- NOTE | 2018-01-06 21:35 | CON ---
DATE OF CONSULTATION: 01/06/2018 REASON FOR CONSULTATION: Diarrhea, hematemesis, melena. CONSULTING PHYSICIAN: Gretchen Santizo MD HISTORY OF PRESENT ILLNESS: The patient is a 78-year-old female with past medical history of hyperte nsion and atrial fibrillation on chronic anticoagulation with Eliquis, who was recently admitted to [facility] in 12/2017 after presenting with an ileus. She subsequently had an NG tube placed during that admission with resolution of her ileus noted on imaging (small bowel follow through); however, the findings were concerning for possible small-bowel obstruction during that particular admission. She was subsequently readmitted on 01/06/2018 with complaints of increased abdominal pain, hematemesi s, and melena. She states that shortly after her discharge, she was experiencing 3 days of diarrhea with change of her stool color from more of a maroon dark red color to black having approximately one of three of these colored bowel movements per day. This was also associated with increased abdomina l pain characterizes sharp/cramping in nature, reaching 8/10 in severity with no clear alleviating or exacerbating factors. Accompanying with her melenic stools and abdominal pain, she also had increa sed nausea without vomiting initially. However, shortly before readmission, she states that she had vomitus of darker colored/dark red emesis. In transit from her home to the EMS to the ER for this ho spitalization, she was also noted to have both black and red stools. Currently, she states that her abdominal pain is better and has had complete resolution of her nausea and vomiting. However, she al so complains of continued nausea and increased abdominal distention. Currently denies any nausea, vo miting, fevers, chills, odynophagia, dysphagia or constipation. REVIEW OF SYSTEMS: A 10 category review of systems was obtained with all responsive negative except for the pertinent positives as listed in the HPI. PAST MEDICAL HISTORY: As per HPI. PAST SURGICAL HISTORY: Hysterectomy, tonsillectomy, exploratory laparotomy with lysis of adhesions a nd a bladder suspension surgery. FAMILY HISTORY: Denies any GI malignancies. SOCIAL HISTORY: Denies any tobacco, alcohol or illicit drug use. OUTPATIENT MEDICATIONS: Reviewed. ALLERGIES: No known drug allergies. PHYSICAL EXAMINATION: VITAL SIGNS: Temperature of 98.9, pulse 97, blood pressure 110/53, respiratory rate 14, satting 96% on room air. GENERAL: The patient is lying in bed with no acute distress. He is alert and oriented x4. NECK: Supple. No JVD noted. CARDIOVASCULAR: Tachycardic rate, but normal rhythm with no discernible murmurs, gallops or rubs. RESPIRATORY: Clear to auscultation bilaterally with no discernible wheezes or rales. ABDOMEN: Normoactive bowel sounds, soft, mildly distended. Tenderness to palpation in the periumbil ical region. LABORATORY DATA: CBC with a white blood cell count of 10.9, hemoglobin 10.1, hematocrit 28.4, platel ets 207. Chemistry with a sodium of 132, potassium 4.2, chloride 102, CO2 23, BUN 35, creatinine 0.6 5, glucose 120, AST 19, ALT 12, alkaline phosphatase 40, total bilirubin 0.6, INR 1.2. IMAGING DATA: CT abdomen and pelvis obtained on 01/06/2018 showed dilated jejunal and proximal ileal small bowel loops measuring up to 3 cm with a transition within the right lower quadrant, nondilated colon. No mucosal thickening. There was also a small amount of free fluid adjacent to the right li genesis, but no free air seen during that examination. The impression was read as a small-bowel obstruct ion within the right lower quadrant. ASSESSMENT AND PLAN: The patient is a 78-year-old female with past medical history of hypertension a nd atrial fibrillation on chronic anticoagulation, presenting with a probable small-bowel obstruction along with an upper GI bleed. Upper GI bleed. The patient is presenting with a recent history of acute onset of dark black stools concerning for melenic process in the upper GI tract. She also endorses increased nausea and vomitin g with hematemesis in the EMS on transit to this particular hospitalization as well as black and red stools concerning for a brisk upper gastrointestinal bleed. Imaging of the abdomen shows significant ly dilated loops of small bowel concerning for a possible small-bowel obstruction and/or ileus, which could potentially back up into the stomach and create gastric irritation and bleeding as a result. However, during her last hospitalization, she had prolonged use of an NG tube which could potentially traumatized the gastric mucosa and when coupled with the use of anticoagulation (Eliquis), it could potentially create an upper GI bleeding source as well. Given the fact that she would probably need a replacement of the NG tube during this hospitalization for conservative management of her small-bow el obstruction and concern for NG tube trauma creating GI bleeding, endoscopic intervention is indica frankie at this time. RECOMMENDATIONS: 1. We will proceed with EGD tonight for evaluation of the gastric mucosa to determine if NG tube tra asif is the source of the bleeding which may further guide therapy for treatment of her possible small -bowel obstruction. 2. We would continue to trend H&H and transfuse as necessary to maintain an H&H of 7/. 3. We would continue patient on PPI given possibility of upper gastrointestinal bleeding. 4. Further recommendations to follow EGD.
[2018-01-07] MEDS: Sodium Chloride 0.9% 1,000 ML IV SCH ×2 (05:00→20:31)
[2018-01-07 05:20] LABS: Anion Gap 9 mmol/L (10-20); BUN (Urea Nitrogen) 16 mg/dL (9.8-20.1); Calc. Creatinine Clearance 63 mL/min (70-130); Calcium 7.4 mg/dL (7.8-10.44); Carbon Dioxide 21 mmol/L (23-31); Chloride 109 mmol/L (98-107); Estimated GFR-MDRD Greater than 90; Glucose 84 mg/dL (83-110); Potassium 3.2 mmol/L (3.5-5.1); Sodium 136 mmol/L (136-145)
[2018-01-07 05:25] LABS: #Eosinphils 0.1 thou/uL (0.0-0.7); #Lymphocytes 1.2 thou/uL (1.20-3.40); #Monocytes 0.8 thou/uL (0.11-0.59); #Neutrophils 4.8 thou/uL (1.40-6.50); %Basophils 0.4 % (0.0-1.0); %Eosinophils 1.9 % (0.0-10.0); %Lymphocytes 16.8 % (21.0-51.0); %Monocytes 11.3 % (0.0-10.0); %Neutrophils 69.5 % (42.0-75.0); Hemoglobin 8.5 g/dL (12.0-16.0); Mean Corpuscular HGB CONC 34.7 g/dL (32.0-36.0); Mean Corpuscular Hemoglobin 32.2 pg (27.0-31.0); Mean Corpuscular Volume 92.6 fl (81.0-99.0); Mean Platelet Volume 7.4 fL (7.4-10.4); Platelet Count 189 thou/uL (130-400); RBC Distribution Width 12.7 % (11.5-14.5); Red Blood Cell (RBC) Count 2.65 mill/uL (4.20-5.40); White Blood Cell (WBC) Count 6.9 thou/uL (4.8-10.8)
[2018-01-07] MEDS: Pantoprazole 40 MG VIAL IVP SCH ×2 (09:27→21:17)
[2018-01-07] MEDS ORDERED: Acetaminophen 1,000 MG in Premix Bag 1 BAG IVPB SCH (09:30)
[2018-01-07] MEDS ORDERED: Ketorolac Tromethamine 30 MG/ML VIAL IVP SCH (09:30)
[2018-01-07] MEDS ORDERED: Piperacillin/Tazobactam 3.375 GM, Admixture Fee 1 EACH in Sodium Chloride 0.9% 100 ML IVPB SCH (09:30)
--- NOTE | 2018-01-07 09:47 | PRG ---
DATE OF SERVICE: 01/07/2018 HISTORY OF PRESENT ILLNESS: Katelyn Deras is doing well today. She has had only 250 mL out of her NG tube and she had a small liquid semi-formed bowel movement this morning. She, however, continues to have abdominal distention, bloating, tympany with hyperactive bowel sounds. Abdominal x-rays are pe nding this morning. PHYSICAL EXAMINATION: LUNGS: Clear to auscultation. CARDIAC: Regular rate and rhythm without murmur or gallop. ABDOMEN: Soft, distended, tympanitic, nontender. ASSESSMENT AND PLAN: High grade partial bowel obstruction. She has already been sent home after a small bowel follow through last hospitalization revealing pers istent proximal small bowel dilatation, but contrast did reach the colon and she went home, but did n ot tolerate her diet and was readmitted. Considering these factors the plan at this time is for lapa roscopic possible open laparotomy and indicated procedures, bowel resection if necessary to resolve h er high grade bowel obstruction. She understands risks of infection, bleeding, reoperation, anastomo tic leakage, if necessary, and consents. She is typed and screened, has an asymptomatic anemia and I doubt that transfusion will be necessary.
[2018-01-07] MEDS ORDERED: Midazolam HCl 2 mg/2 ml Vial ONE (10:01)
[2018-01-07] MEDS ORDERED: Fentanyl 100 MCG/2 ML VIAL ONE ×2 (10:01→12:28)
[2018-01-07] MEDS ORDERED: Dexamethasone 4 mg/ml Vial ONE (10:01)
[2018-01-07] MEDS ORDERED: EPINEPHrine 1 MG/10 ML Abboject SYRINGE ONE (10:45)
[2018-01-07] MEDS ORDERED: EPINEPHrine 1 MG/ML AMP ONE (10:46)
[2018-01-07] MEDS ORDERED: Ketorolac Tromethamine 30 MG/ML VIAL ONE (10:53)
[2018-01-07] MEDS ORDERED: HYDROmorphone 0.5 MG/0.5 ML SYRINGE ONE (12:28)
--- NOTE | 2018-01-07 12:59 | RAD ---
ABDOMEN 1 VIEW WITH A 1 VIEW CHEST XRAY: HISTORY: Followup small bowel obstruction. COMPARISON: Radiograph prior day. FINDINGS: An enteric tube is in place with the tip at what appears to be second portion of the duodenum. Multi ple air fluid levels are present throughout the abdomen. There is contrast in the urinary bladder. There also appears to be some contrast in the rectal vault . On the upright view, there is no definite free air beneath the hemidiaphragms. IMPRESSION: Similar appearance to the abdomen with dilated small bowel loops, although there is contrast seen wit hin the rectal vault indicating this is not likely a high-grade obstructive progress. POS: [facility]
[2018-01-07] MEDS ORDERED: Bupivacaine PF 0.5% 30 ML VIAL ONE (13:43)
[2018-01-07] MEDS ORDERED: Lidocaine 1% PF 5 ML VIAL ONE (13:48)
[2018-01-07] MEDS ORDERED: PHENYLEPHRINE-NS 100 MCG/ML 10 ML SYRINGE ONE (13:48)
[2018-01-07] MEDS ORDERED: Ondansetron HCl/PF 4 MG/2 ML Vial ONE (13:48)
[2018-01-07] MEDS ORDERED: Glycopyrrolate 0.2 MG/ML 5 ML SYRINGE ONE (13:48)
[2018-01-07] MEDS ORDERED: Succinylcholine Chloride 20 MG/ML 10 ml SYRINGE FS ONE (13:48)
[2018-01-07] MEDS ORDERED: Propofol 200 MG/20 ML VIAL ONE (13:48)
[2018-01-07] MEDS ORDERED: Ketorolac Tromethamine 30 MG/ML VIAL IVP PRN (13:50)
[2018-01-07] MEDS ORDERED: Ondansetron ODT 4 MG TAB PO PRN (13:56)
[2018-01-07] MEDS ORDERED: Ondansetron ORAL SOLN. 4 MG/5 ML UDCUP PO PRN ×2 (13:56)
[2018-01-07] MEDS ORDERED: Ondansetron ODT 8 MG TAB SL PRN (13:56)
[2018-01-07] MEDS ORDERED: Ondansetron ODT 8 MG TAB PO PRN (13:56)
[2018-01-07] MEDS ORDERED: Ondansetron HCl/PF 4 MG/2 ML Vial IVP PRN (14:01)
[2018-01-07] MEDS ORDERED: Promethazine HCl 25 MG/ML VIAL IM PRN (14:01)
[2018-01-07] MEDS ORDERED: Promethazine HCl 25 MG/ML VIAL SLOW IVP PRN (14:01)
--- NOTE | 2018-01-07 14:01 | OP ---
PREOPERATIVE DIAGNOSIS: Small-bowel obstruction secondary to peritoneal adhesions (history of hyster ectomy and bladder suspension). PROCEDURES: Laparoscopic adhesiolysis. Of note, there was an offending adhesion in the terminal ileum lysed and few adhesions taken down, bu t not all adhesions were taken down as just the offending adhesions were tented to. SURGEON: Dr. Filippo Obrien ANESTHESIA: General, tap block. Of note, postoperatively, patient's NG tube was removed and Trevizo removed and she will be kept on ice chips and medications with a sip of water and started on liquids later tonight and advance as tolera frankie tomorrow. PROCEDURE IN DETAIL: Patient taken to the operating room where under general anesthesia, Trevizo joe ter was placed. Abdomen were prepared with ChloraPrep and draped in routine fashion. Tap block had been performed in the preoperative holding area. Left lateral subcostal incision made and pneumoperi toneum to 15 mmHg obtained with the Veress needle, replacing it with 5 port and video laparoscope ins erted. Left lower quadrant incision made and a 5 port placed under laparoscopic visualization. Ther e were adhesions about the umbilicus, taken down with cold scissors as left paraumbilical incision ma de and a 5 port placed. Fourth port placed lateral midabdomen and a 5 port. Adhesiolysis taken down with cold scissors, identifying taking down adhesions through the transverse colon. There was some omentum adherent to the anterior abdominal wall from the transverse colon and this was left intact. Attention was then turned to the terminal ileum, cecum, and appendix. Appendix was normal. Terminal ileum identified and there was an adhesive band causing the obstruction released with cold scissors. There were more adhesions in terminal ileum, carefully taken down with cold scissors. Small bowel was marched proximally and transition point noted that had been relieved by the adhesiolysis. There were some more adhesions more proximally that were not taken down and were not obstructive. The tatiana ent tolerated the procedure well as pneumoperitoneum evacuated. All instruments removed and all skin incisions approximated with interrupted subdermal 4-0 Monocryl and DermaGlue applied.
--- NOTE | 2018-01-07 16:33 | PDOC.PN ---
- Subjective Encounter Start Date: 01/07/18 Encounter Start Time: 16:32 Pt seen for followup re: bowel obstruction. Had surgery, denies chest pain, shortness of breath, fevers or chills. - Objective Resuscitation Status: Resuscitation Status DNR:Do Not Resuscitate MAR Reviewed: Yes Vital Signs & Weight: Vital Signs (12 hours) Temp Pulse Resp BP Pulse Ox 01/07/18 08:00 96.8 F L 82 16 120/61 95 Weight Admit Weight 115 lb 8 oz Weight 122 lb I&O: 01/06/18 01/07/18 01/08/18 06:59 06:59 06:59 Intake Total 500 1850 Output Total 200 Balance 500 1650 Result Diagrams: 01/07/18 04:42 01/07/18 04:42 EKG Reviewed by me: Yes (Tele: NSR) Phys Exam - Physical Examination Constitutional: NAD HEENT: moist MMs Neck: supple Respiratory: clear to auscultation bilateral Cardiovascular: RRR Gastrointestinal: soft surgical sites appear clean Neurological: moves all 4 limbs Psychiatric: normal affect Dx/Plan (1) Bowel obstruction Code(s): K56.609 - UNSP INTESTNL OBST, UNSP TO PARTIAL VERSUS COMPLETE OBST Status: Acute (2) Afib Code(s): I48.91 - UNSPECIFIED ATRIAL FIBRILLATION Status: Chronic (3) HTN (hypertension) Code(s): I10 - ESSENTIAL (PRIMARY) HYPERTENSION Status: Chronic - Plan plan discussed w/ family, out of bed/ambulate * . s/p laparoscopic surgery for bowel obstruction. Pt has been restarted on home medications. Pt is on prophylactic Lovenox dose, will resume Eliquis when okay form surgical perspective. Review of Systems - Medications/Allergies Allergies/Adverse Reactions: Allergies Allergy/AdvReac Type Severity Reaction Status Date / Time codeine Allergy Nausea Verified 01/06/18 03:51 Medications: Current Medications Acetaminophen (Tylenol) 1,000 mg PO Q6H PRN PRN Reason: Moderate to Severe Pain (6-10) Dronedarone (Multaq) 400 mg PO BID-[facility] Enoxaparin Sodium (Lovenox) 40 mg SC 2100 [place] Last Admin: 01/06/18 21:03 Dose: Not Given Fentanyl (Pacu-Sublimaze) 50 mcg SLOW IVP Q10MIN PRN PRN Reason: Moderate to Severe Pain (6-10) Stop: 01/07/18 17:02 Acetaminophen 1,000 mg/ Device 100 mls @ 400 mls/hr IVPB ONE [facility] Stop: 01/08/18 09:31 Potassium Chloride/Sodium Chloride (1/2 Ns W/Kcl 20 Meq) 1,000 mls @ 100 mls/ hr IV .Q10H [facility] Acetaminophen 1,000 mg/ Device 100 mls @ 400 mls/hr IVPB Q6HR [facility] Stop: 01/08/18 18:01 Ketorolac Tromethamine (Toradol) 30 mg IVP ONE [facility] Stop: 01/12/18 09:31 Ketorolac Tromethamine (Toradol) 15 mg IVP Q6H PRN PRN Reason: Pain Stop: 01/12/18 13:51 Lisinopril (Zestril) 5 mg PO DAILY [facility] Ondansetron HCl (Zofran) 4 mg IVP Q6H PRN PRN Reason: Nausea/Vomiting Ondansetron HCl (Zofran Odt) 4 mg PO Q6H PRN PRN Reason: Nausea/Vomiting Ondansetron HCl (Pacu-Zofran) 4 mg IVP ONE PRN PRN Reason: Nausea/Vomiting Stop: 01/07/18 17:02 Pantoprazole Sodium (Protonix) 40 mg IVP Q12HR [facility] Last Admin: 01/07/18 09:27 Dose: 40 mg Promethazine HCl (Pacu-Phenergan) 6.25 mg SLOW IVP ONE PRN PRN Reason: Nausea/Vomiting Stop: 01/07/18 17:02 Promethazine HCl (Pacu-Phenergan) 6.25 mg IM ONE PRN PRN Reason: Nausea/Vomiting Stop: 01/07/18 17:02 Scopolamine (Transderm Scop) 1.5 mg TD Q3D [facility] Sodium Chloride (Flush - Normal Saline) 10 ml IVF Q12HR [facility] Last Admin: 01/07/18 09:28 Dose: 10 ml Sodium Chloride (Flush - Normal Saline) 10 ml IVF PRN PRN PRN Reason: Saline Flush Last Admin: 01/07/18 09:28 Dose: 10 ml Tramadol HCl (Ultram) 50 mg PO Q6H PRN PRN Reason: Pain Tramadol HCl (Ultram) 100 mg PO Q6H PRN PRN Reason: Pain
[2018-01-07] MEDS: 1/2 NS w/KCL 20 mEq 1,000 ML IV SCH (17:52)
[2018-01-07] MEDS: Dronedarone HCl 400 MG TAB PO SCH (17:54)
[2018-01-07] MEDS: Scopolamine 1.5 mg/72 hour Patch TD SCH ×2 (17:56→18:13)
[2018-01-07] MEDS: Enoxaparin Sodium 40 MG/0.4 ML SYRINGE SC SCH (20:21)
[2018-01-07] MEDS: Acetaminophen 1,000 MG in Premix Bag 1 BAG IVPB SCH (21:18)
[2018-01-08] MEDS: Acetaminophen 1,000 MG in Premix Bag 1 BAG IVPB SCH ×2 (00:50→07:15)
[2018-01-08] MEDS: 1/2 NS w/KCL 20 mEq 1,000 ML IV SCH (00:55)
--- NOTE | 2018-01-08 01:16 | PRG ---
DATE OF SERVICE: 01/07/2018 REASON FOR CONSULTATION: Hematemesis, melena. SUBJECTIVE: The patient underwent EGD yesterday with no immediate perioperative complications, no acute events or problems overnight per nursing staff. However, the patient had already been taken to surgery at the time of this interview with no further information elicited. OBJECTIVE: VITAL SIGNS: Temperature of 97.7, pulse 83, blood pressure 130/70, respiratory rate 18, satting 97% on room air. LABORATORY DATA: CBC with a white blood cell count of 6.9, hemoglobin 8.5, hematocrit 24.5, platelets 189. Chemistry with a sodium of 136, potassium 3.2, chloride 109, CO2 of 21, BUN 16, creatinine 0.6, glucose 84. IMAGING DATA: EGD performed on 01/06/2018 showed the presence of a 4-5 mm clean based ulceration at the gastroesophageal junction in a round-like fashion that was immediately surrounded by significantly erythematous mucosa in a circular pattern almost creating a target Zach appearance consistent with NG tube trauma. Two additional red spots measuring 3-4 mm in size were seen in the gastric fundus/body also consistent with prior NG tube trauma. ASSESSMENT AND PLAN: The patient is a 78-year-old female with past medical history of hypertension and atrial fibrillation on chronic anticoagulation, presenting with small-bowel obstruction along with upper gastrointestinal bleed. Upper gastrointestinal bleed/gastroesophageal junction ulceration: The patient presented with a recent history of acute onset of dark black stools concerning for melenic process in the upper GI tract. Of note, she had been recently admitted to the hospital for partial small-bowel obstruction that responded to conservative measures with NG tube suction to low intermittent wall suction; however, she was discharged to home and had the black stools as mentioned above which prompted readmission in addition to increased abdominal distention. EGD performed on 01/06/2018 showed the presence of a 4-5 mm clean based ulceration at the gastroesophageal junction consistent with prior NG tube trauma and is the most likely source of her recent melena and anemia. At this point, given the ulcer characteristics, her risk of rebleeding is extremely low. NG tube placed at the time of the procedure had both the side port and distal tip well beyond this area of interest to prevent any further injury. RECOMMENDATIONS: 1. The patient to follow up with General Surgery service for surgical management of her partial small-bowel obstruction. 2. We will continue to trend H&H and transfuse as necessary to maintain an H&H of 06/01. 3. We would continue to monitor clinically for further signs of either hematemesis or melena. 4. We will continue patient on PPI given the presence of this gastroesophageal junction ulceration. We will sign off at this time. Please call with any questions or change in patient's clinical status. MTDD
[2018-01-08 05:31] LABS: #Basophils 0.2 thou/uL (0.0-0.2); #Lymphocytes 0.9 thou/uL (1.20-3.40); #Monocytes 0.7 thou/uL (0.11-0.59); #Neutrophils 5.2 thou/uL (1.40-6.50); %Basophils 2.5 % (0.0-1.0); %Eosinophils 0.3 % (0.0-10.0); %Lymphocytes 12.9 % (21.0-51.0); %Monocytes 9.5 % (0.0-10.0); %Neutrophils 74.9 % (42.0-75.0); Hemoglobin 8.8 g/dL (12.0-16.0); Mean Corpuscular HGB CONC 33.3 g/dL (32.0-36.0); Mean Corpuscular Hemoglobin 30.9 pg (27.0-31.0); Mean Corpuscular Volume 92.8 fl (81.0-99.0); Mean Platelet Volume 7.1 fL (7.4-10.4); Platelet Count 228 thou/uL (130-400); Red Blood Cell (RBC) Count 2.86 mill/uL (4.20-5.40)
[2018-01-08 05:44] LABS: Anion Gap 12 mmol/L (10-20); BUN (Urea Nitrogen) 11 mg/dL (9.8-20.1); Calc. Creatinine Clearance 59 mL/min (70-130); Carbon Dioxide 23 mmol/L (23-31); Chloride 102 mmol/L (98-107); Estimated GFR-MDRD 83; Glucose 97 mg/dL (83-110); Potassium 3.5 mmol/L (3.5-5.1); Sodium 133 mmol/L (136-145)
[2018-01-08] MEDS: Lisinopril 5 MG TAB PO SCH (08:07)
[2018-01-08] MEDS: Dronedarone HCl 400 MG TAB PO SCH ×2 (08:07→16:07)
[2018-01-08] MEDS ORDERED: Potassium Chloride 20 MEQ TAB PO SCH (08:15)
--- NOTE | 2018-01-08 08:18 | PRG ---
DATE OF SERVICE: 01/08/2018 SUBJECTIVE: Katelyn Deras is doing well this morning. She has not had any nausea or vomiting over night. She started clear liquids last night and has ordered full liquids this morning. NG tube was removed postoperatively yesterday. OBJECTIVE: VITAL SIGNS: Temperature 98.1 degrees, 88, 17, 112/61. LUNGS: Clear to auscultation. CARDIAC: Regular rate and rhythm. ABDOMEN: Soft, bowel sounds present, mildly distended, mildly tympanitic. LABORATORY DATA: This morning, her white count is 7, hemoglobin 8.8, which is stable. Her sodium is 133, potassium 3.5, BUN and creatinine 11 and 0.68. Patient has not passed any flatus or stool. ASSESSMENT AND PLAN: Awaiting bowel activity post-laparoscopic adhesiolysis. Continue full liquids till she passes flatus or stool and then advance to regular diet. Continue home medications. Expect discharge hopefully in the next 24-48 hours.
[2018-01-08] MEDS ORDERED: Acetaminophen 500 MG TAB PO PRN (10:00)
[2018-01-08] MEDS ORDERED: traMADol HCl 50 MG TAB PO PRN ×2 (10:00)
--- NOTE | 2018-01-08 15:20 | PDOC.PN ---
- Subjective Encounter Start Date: 01/08/18 Encounter Start Time: 07:40 Pt seen for followup re: bowel obstruction. Denies abdo pain. No fevers or chills. Not passing flatus yet. - Objective Resuscitation Status: Resuscitation Status DNR:Do Not Resuscitate MAR Reviewed: Yes Vital Signs & Weight: Vital Signs (12 hours) Temp Pulse Resp BP Pulse Ox 01/08/18 12:30 98.2 F 82 16 126/60 98 01/08/18 08:05 98.3 F 65 16 113/59 L 98 01/08/18 03:26 98.1 F 88 17 112/61 97 Weight Admit Weight 115 lb 8 oz Weight 125 lb 6.4 oz I&O: 01/07/18 01/08/18 01/09/18 06:59 06:59 06:59 Intake Total 1850 1884 Output Total 200 800 Balance 1650 1084 Result Diagrams: 01/08/18 05:15 01/08/18 05:15 EKG Reviewed by me: Yes (Tele: lashanda oliva) Phys Exam - Physical Examination Constitutional: NAD HEENT: moist MMs Neck: supple Respiratory: clear to auscultation bilateral Cardiovascular: irregular Gastrointestinal: soft Neurological: moves all 4 limbs Psychiatric: normal affect Deviation from normal: surgical sites clean Dx/Plan (1) Bowel obstruction Code(s): K56.609 - UNSP INTESTNL OBST, UNSP TO PARTIAL VERSUS COMPLETE OBST Status: Acute (2) Afib Code(s): I48.91 - UNSPECIFIED ATRIAL FIBRILLATION Status: Chronic (3) HTN (hypertension) Code(s): I10 - ESSENTIAL (PRIMARY) HYPERTENSION Status: Chronic - Plan plan discussed w/ family, out of bed/ambulate * . s/p surgery for bowel obstruction yesterday. Off of anticoagulation, hemoglobin stable. Likely home 24-48 hrs. Review of Systems - Review of Systems Cardiovascular: negative: chest pain, palpitations, orthopnea, paroxysmal nocturnal dyspnea, edema, light headedness Gastrointestinal: Constipation. negative: Nausea, Vomiting, Abdominal Pain, Diarrhea, Melena, Hematochezia - Medications/Allergies Allergies/Adverse Reactions: Allergies Allergy/AdvReac Type Severity Reaction Status Date / Time codeine Allergy Nausea Verified 01/06/18 03:51 Medications: Current Medications Acetaminophen (Tylenol) 1,000 mg PO Q6H PRN PRN Reason: Moderate to Severe Pain (6-10) Dronedarone (Multaq) 400 mg PO BID-[facility] Last Admin: 01/08/18 08:07 Dose: 400 mg Enoxaparin Sodium (Lovenox) 40 mg SC 2100 [facility] Last Admin: 01/07/18 20:21 Dose: Not Given Lisinopril (Zestril) 5 mg PO DAILY [facility] Last Admin: 01/08/18 08:07 Dose: 5 mg Ondansetron HCl (Zofran) 4 mg IVP Q6H PRN PRN Reason: Nausea/Vomiting Ondansetron HCl (Zofran Odt) 4 mg PO Q6H PRN PRN Reason: Nausea/Vomiting Pantoprazole Sodium (Protonix) 40 mg PO DAILY [facility] Last Admin: 01/08/18 08:12 Dose: 40 mg Scopolamine (Transderm Scop) 1.5 mg TD Q3D [facility] Last Admin: 01/07/18 18:13 Dose: 1.5 mg Sodium Chloride (Flush - Normal Saline) 10 ml IVF Q12HR [facility] Last Admin: 01/08/18 08:12 Dose: 10 ml Sodium Chloride (Flush - Normal Saline) 10 ml IVF PRN PRN PRN Reason: Saline Flush Last Admin: 01/07/18 09:28 Dose: 10 ml Tramadol HCl (Ultram) 50 mg PO Q6H PRN PRN Reason: Pain Tramadol HCl (Ultram) 100 mg PO Q6H PRN PRN Reason: Pain
[2018-01-08] MEDS: Enoxaparin Sodium 40 MG/0.4 ML SYRINGE SC SCH (20:27)
[2018-01-09 04:48] LABS: #Eosinphils 0.1 thou/uL (0.0-0.7); #Lymphocytes 1.2 thou/uL (1.20-3.40); #Monocytes 0.6 thou/uL (0.11-0.59); #Neutrophils 4.1 thou/uL (1.40-6.50); %Eosinophils 1.9 % (0.0-10.0); %Lymphocytes 20.6 % (21.0-51.0); %Monocytes 9.6 % (0.0-10.0); %Neutrophils 67.9 % (42.0-75.0); Hemoglobin 8.5 g/dL (12.0-16.0); Mean Corpuscular HGB CONC 35.3 g/dL (32.0-36.0); Mean Corpuscular Volume 93.5 fl (81.0-99.0); Mean Platelet Volume 6.7 fL (7.4-10.4); Platelet Count 260 thou/uL (130-400); RBC Distribution Width 13.5 % (11.5-14.5); Red Blood Cell (RBC) Count 2.58 mill/uL (4.20-5.40)
[2018-01-09 04:59] LABS: Anion Gap 8 mmol/L (10-20); BUN (Urea Nitrogen) 10 mg/dL (9.8-20.1); Calc. Creatinine Clearance 58 mL/min (70-130); Calcium 7.9 mg/dL (7.8-10.44); Carbon Dioxide 26 mmol/L (23-31); Chloride 105 mmol/L (98-107); Estimated GFR-MDRD 79; Glucose 101 mg/dL (83-110); Potassium 3.2 mmol/L (3.5-5.1); Sodium 136 mmol/L (136-145)
[2018-01-09] MEDS: Dronedarone HCl 400 MG TAB PO SCH (08:02)
[2018-01-09] MEDS: Lisinopril 5 MG TAB PO SCH (08:02)
[2018-01-09] MEDS ORDERED: Potassium Chloride 20 MEQ TAB PO SCH (09:30)
[2018-01-09 12:23] VITALS: BP 118/69; TEMP 98.6
[2018-01-09 12:28] VITALS: BMI 22.7
--- NOTE | 2018-01-09 12:35 | PRG ---
DATE OF SERVICE: 01/09/2018 Katelyn Deras is doing well today. She tolerated her diet. She has passed flatus. She has had a bow el movement. OBJECTIVE: VITAL SIGNS: Temperature 98.6 degrees 100 heart rate, 16 respiratory rate, 118/69. LABORATORY: hemoglobin stable at 8.5, white count 6. Basic metabolic profile normal. Potassium 3. 2. LUNGS: Clear to auscultation. CARDIAC: Regular rate and rhythm without murmur or gallop. ABDOMEN: Soft, nontender. Bowel sounds present. ASSESSMENT AND PLAN: Doing well status post laparoscopic adhesiolysis for bowel obstruction. Joel williamson plan to discharge home today and follow up in my office in 2-3 weeks at her convenience.
--- NOTE | 2018-01-09 14:04 | DIS ---
DATE OF ADMISSION: 01/06/2018 DATE OF DISCHARGE: 01/09/2018 PRIMARY CARE PHYSICIAN: Camille August M.D. DISCHARGE DIAGNOSES: 1. Gastrointestinal bleed. 2. Bowel obstruction. 3. Hypokalemia. CONSULTATIONS DURING THIS HOSPITALIZATION: Pulmonary and Critical Care Medicine, Dr. Patrice Villagran; General Surgery, Dr. Filippo Obrien; and Gastroenterology, Dr. Jorge Briseno. CONDITION OF PATIENT ON THE DAY OF DISCHARGE: Stable. I assessed Ms. Deras on the day of discharge. She denies any chest pain or shortness of breath. She denies any abdominal pain. Vital signs are s table. S1 and S2 are heard, regular. Lungs are clear to auscultation bilaterally. Abdomen is soft, nontender, bowel sounds are heard. PROCEDURES DURING THIS HOSPITALIZATION: 1. On 01/06/2018, patient underwent EGD by Gastroenterology service, which showed a 4-5 mm ulceratio n surrounded by significantly increased erythema, measuring 4 mm in diameter, at the gastroesophageal junction consistent with prior NG tube trauma. She also had 2 additional red spots, measuring 3-4 m m in diameter in the gastric fundus left body, also consistent with prior NG tube trauma. 2. On 01/07/2018, she underwent laparoscopic adhesiolysis by General Surgery. HOSPITAL COURSE: Ms. Deras is a pleasant 78-year-old lady, who was admitted to [facility] on 01/06/2018. She was hospitalized just prior to this admission for small-bowel obstruc tion, during which she had a NG tube placed. This time she presented with hematemesis. She was also found to have a bowel obstruction. She was seen by Gastroenterology and General Surgical Services. She also underwent transfusion of 1 unit of packed RBCs. She had esophagogastroduodenoscopy, with findings as above. She also underwent laparoscopic adhesiol ysis. She improved clinically. She was tolerating diet. She was passing flatus on the day of discharge. I discussed with Gastroenterology and General surgical services. Both of them were in agreement abou t resuming her anticoagulation. On the day of discharge, she has a white count of 6000, hemoglobin 8.5, platelet count 260,000. Sodi um 136; potassium 3.2, which was replaced; and creatinine 0.71. Many thanks for allowing me to participate in your patient's care. Please feel free to contact me wi th any questions or concerns. DISCHARGE MEDICATIONS: Include Tylenol Extra Strength p.r.n., apixaban 5 mg 2 times a day, atorvasta tin 10 mg at bedtime, Os-Alex plus vitamin D 500 mg daily, vitamin D3 1000 units daily, Multaq 400 mg 2 times a day, lisinopril 5 mg daily, Centrum Silver 1 tablet daily and Protonix 40 mg 2 times a day. DISCHARGE DESTINATION: Home. TOTAL AMOUNT OF TIME SPENT COORDINATING THIS DISCHARGE: 27 minutes.
--- NOTE | 2018-01-12 15:36 | EKG ---
Test Reason : WEAKNESS Blood Pressure : / mmHG Vent. Rate : 093 BPM Atrial Rate : 093 BPM P-R Int : 138 ms QRS Dur : 080 ms QT Int : 366 ms P-R-T Axes : 072 027 065 degrees QTc Int : 455 ms Normal sinus rhythm Nonspecific T wave abnormality Abnormal ECG Confirmed by AIMEE SIEGEL, ALISON Purcell ([id number]), slot editor LAURA DAVIDSON ([id number]) on 01/12/2018 3:36:31 PM Referred By: Confirmed By:ALISON YU MD
== END 2018-01-09 14:58 | disposition home or self-care (01) | DRG 336 ==
LOC: ERS 23:35 → IMCU/EMU 01-06 01:10 → 2NO 01-06 15:52
PROVIDERS: ADMIT Internal Medicine; ATTEND Internal Medicine
PROC: 0DJ08ZZ Inspection of Upper Intestinal Tract, Via Natural or Artificial Opening Endoscopic (ICD-10-PCS; 2018-01-06)
PROC: 30233N1 Transfusion of Nonautologous Red Blood Cells into Peripheral Vein, Percutaneous Approach (ICD-10-PCS; 2018-01-06)
PROC: 0DNB4ZZ Release Ileum, Percutaneous Endoscopic Approach (ICD-10-PCS; principal; 2018-01-07)
PROC: 0DNL4ZZ Release Transverse Colon, Percutaneous Endoscopic Approach (ICD-10-PCS; 2018-01-07)
PROC: 3E0T3BZ Introduction of Anesthetic Agent into Peripheral Nerves and Plexi, Percutaneous Approach (ICD-10-PCS; 2018-01-07)
DX: K56.51 Intestinal adhesions [bands], with partial obstruction (principal); K92.0 Hematemesis; I48.0 Paroxysmal atrial fibrillation; T85.9XXA Unspecified complication of internal prosthetic device, implant and graft, initial encounter; K92.1 Melena; I10 Essential (primary) hypertension; Z88.5 Allergy status to narcotic agent; Z79.01 Long term (current) use of anticoagulants; K25.9 Gastric ulcer, unspecified as acute or chronic, without hemorrhage or perforation; Z98.890 Other specified postprocedural states; E87.6 Hypokalemia; Y84.5 Insertion of gastric or duodenal sound as the cause of abnormal reaction of the patient, or of later complication, without mention of misadventure at the time of the procedure; Y73.1 Therapeutic (nonsurgical) and rehabilitative gastroenterology and urology devices associated with adverse incidents
CPT/HCPCS: 36415; 36430; 74018; 74022; 74177; 80048; 80053; 82274; 82550; 82553; 84484; 85025; 85610; 85730; 86850; 86900; 86901; 93005; 94760; 96361; 96374; A4216; C9113; J0131; J0171; J1100; J1170; J1650; J1885; J2001; J2250; J2405; J2543; J2704; J3010; J7050; P9016; S0020

== ENCOUNTER 2018-02-11 23:46 | Inpatient (IN) | payer MEDICARE ==
[2018-02-12] MEDS ORDERED: Morphine 4 MG/ML VIAL ONE (00:51)
[2018-02-12] MEDS ORDERED: Ondansetron HCl/PF 4 MG/2 ML Vial SLOW IVP SCH (01:00)
[2018-02-12] MEDS ORDERED: Benzocaine 20% Spray 60 ML CAN ONE (01:26)
[2018-02-12 01:32] LABS: #Lymphocytes 0.5 thou/uL (1.20-3.40); #Monocytes 0.2 thou/uL (0.11-0.59); #Neutrophils 6.8 thou/uL (1.40-6.50); %Basophils 0.4 % (0.0-1.0); %Lymphocytes 6.4 % (21.0-51.0); %Monocytes 2.8 % (0.0-10.0); %Neutrophils 90.4 % (42.0-75.0); Hemoglobin 11.6 g/dL (12.0-16.0); Mean Corpuscular HGB CONC 33.1 g/dL (32.0-36.0); Mean Corpuscular Hemoglobin 29.4 pg (27.0-31.0); Mean Corpuscular Volume 88.9 fl (81.0-99.0); Mean Platelet Volume 7.3 fL (7.4-10.4); Platelet Count 388 thou/uL (130-400); RBC Distribution Width 12.2 % (11.5-14.5); Red Blood Cell (RBC) Count 3.94 mill/uL (4.20-5.40); White Blood Cell (WBC) Count 7.5 thou/uL (4.8-10.8)
[2018-02-12 01:36] LABS: INR-International Normal Ratio 1.1; PTT 24.2 SEC (22.9-36.1); Prothrombin Time 14.4 SEC (12.0-14.7)
[2018-02-12 01:46] LABS: ALT (SGPT) 12 U/L (8-55); AST (SGOT) 18 U/L (5-34); Albumin 4.7 g/dL (3.4-4.8); Alkaline Phosphatase 54 U/L (40-150); Anion Gap 15 mmol/L (10-20); BUN (Urea Nitrogen) 18 mg/dL (9.8-20.1); Bilirubin, Total 0.8 mg/dL (0.2-1.2); CK (CPK) 48 U/L (29-168); Calc. Creatinine Clearance 0 mL/min (70-130); Calcium 10.2 mg/dL (7.8-10.44); Carbon Dioxide 26 mmol/L (23-31); Chloride 100 mmol/L (98-107); Estimated GFR-MDRD 50; Globulin 2.7 g/dL (2.4-3.5); Glucose 173 mg/dL (83-110); Lipase 22 U/L (8-78); Potassium 4.2 mmol/L (3.5-5.1); Protein, Total 7.4 g/dL (6.0-8.3); Sodium 137 mmol/L (136-145)
[2018-02-12 01:50] LABS: CKMB 0.5 ng/mL (0-6.6); Troponin I Less than 0.010 ng/mL (< 0.028)
[2018-02-12 05:01] LABS: Bilirubin Negative (Negative); Blood, Urine Negative (Negative); Clarity CLEAR (Clear); Glucose, Urine (Dipstick) Negative (Negative); Leukocyte Negative (Negative); Nitrite Negative (Negative); Protein, Urine (Dipstick) Trace mg/dL (Neg-Trace); Urobilinogen 0.2 mg/dL (0.2-1.0)
[2018-02-12 05:05] VITALS: BMI 21.2
[2018-02-12 05:11] LABS: Specific Gravity, Urine 1.059 (1.002-1.036)
[2018-02-12] MEDS ORDERED: Morphine 4 MG/ML VIAL SLOW IVP PRN (05:25)
[2018-02-12] MEDS ORDERED: Ondansetron ODT 4 MG TAB SL PRN (05:26)
[2018-02-12] MEDS ORDERED: Ondansetron HCl/PF 4 MG/2 ML Vial IVP PRN ×2 (05:26→09:26)
[2018-02-12] MEDS: D5 1/2 NS w/20 mEq KCL 1,000 ML IV SCH ×2 (05:54→16:14)
--- NOTE | 2018-02-12 07:39 | RAD ---
CHEST 1 VIEW: Date: 02/12/18 HISTORY: Abdominal pain, cramping, chest pain. COMPARISON: Radiograph from 2017. FINDINGS: Lungs without focal air space consolidation, pneumothorax, or effusions. Lungs are mildly hyperinflat ed. Moderate S-shaped scoliosis of thoracic spine. No acute osseous abnormality. IMPRESSION: No acute intrathoracic abnormality. POS: [facility]
[2018-02-12] MEDS ORDERED: Ketorolac Tromethamine 30 MG/ML VIAL IVP PRN (09:24)
[2018-02-12] MEDS ORDERED: Ondansetron ODT 8 MG TAB SL PRN (09:26)
--- NOTE | 2018-02-12 10:07 | CT ---
PRELIMINARY REPORT/[facility]/EMERGENTY AFTER-HOURS PROCEDURE The findings were verbally communicated via telephone conference with ISADORA OCONNOR at 3:13 AM CDT o n 02/12/2018. The findings were acknowledged and understood. EXAM: CT Abdomen and Pelvis With Intravenous Contrast CLINICAL HISTORY: 78 years old, female; Pain; Abdominal pain; Generalized; Prior surgery; Surgery date: 1-6 months; [place] type: Laproscopic abdominal surgery; Patient HX: 78 yr old female with a HX of a-fib and recent sbo 2/2 adhesions presents with C/O persistent vomiting for 7.5 hours. Last bm 6 hours travel pta. Npo last 7 hours. Cramping abdominal pain all over but worse in llq. Laparoscpic adhesiolysis with dr Roderick Obrien in december. TECHNIQUE: Axial computed tomography images of the abdomen and pelvis with intravenous contrast. Coronal reforma tted images were created and reviewed. CONTRAST: 70 mL of ISOVUE administered intravenously. COMPARISON: CT Abdomen Pelvis W Con 2018-01-06 02:12 FINDINGS: Lung bases: No mass. No consolidation. ABDOMEN: Liver: Unremarkable. No mass. Gallbladder and bile ducts: Unremarkable. No calcified stones. No ductal dilation. Pancreas: Unremarkable. No mass. No ductal dilation. Spleen: Unremarkable. No splenomegaly. Adrenals: Unremarkable. No mass. Kidneys and ureters: Unremarkable. No solid mass. No hydronephrosis. Stomach and bowel: Dilated fluid-filled small bowel loops in the abdomen and pelvis extending into th e right lower quadrant with relative decompression images 49-52 in the right lower quadrant and image s 41-43 of the coronal series. Moderate stool in the colon Appendix: No findings to suggest acute appendicitis. PELVIS: Bladder: Unremarkable. No mass. Reproductive: Unremarkable as visualized. ABDOMEN and PELVIS: Intraperitoneal space: Unremarkable. No free air. No significant fluid collection. Bones/joints: No acute fracture. No dislocation. Soft tissues: Unremarkable. Vasculature: Unremarkable. No abdominal aortic aneurysm. Lymph nodes: Unremarkable. No enlarged lymph nodes. IMPRESSION: Developing partial small bowel obstruction with presumed right lower clock in transition points presumably related to an adhesion Question constipation Thank you for allowing us to participate in the care of your patient. Dictated and Authenticated by: Phong Alanis MD 02/12/2018 3:09 AM Central Time ([place] & [place]) FINAL REPORT CT ABDOMEN AND PELVIS WITH CONTRAST: History: Small bowel obstruction. Comparison: CT abdomen and pelvis, 01-06-18 FINDINGS: The findings and impression concur with the preliminary report. Code QA. New from the previous exam t here are phleboliths in the pelvis. The transition point in the right upper quadrant of abdomen at th e mid to distal ileum. Seen on Image 45.
--- NOTE | 2018-02-12 10:45 | HP ---
HISTORY OF PRESENT ILLNESS: Katelyn Deras is a 78-year-old female, admitted through the emergency ana with a bowel obstruction. She began yesterday experiencing nausea, vomiting, abdominal distention at 5:00 p.m. She had a bowel movement about 6:00 p.m. She has not passed gas or had a bowel movemen t since that time. She presented to the emergency room late in the evening Sunday night and had a co mprehensive metabolic profile that was essentially unremarkable and normal liver function tests and n ormal lipase. White count 7 and hemoglobin 11.6. She had a CAT scan of the abdomen and pelvis perfo rmed revealing changes consistent with a bowel obstruction with a transition point in the right lower quadrant. She had moderate stool in the colon. Appendix appeared to be normal. It was felt that s he had a small-bowel obstruction related to adhesions. She was brought to the surgical floor at 5:00 a.m. and NG tube left clamped until 7:00-7:30 a.m. when it was placed to suction. There were no ord ers from the emergency room physician for NG tube to low intermittent suction. NG tube is at 50 cm. The patient has had no significant output. At initial placement, the family reports 200 mL output, but none. SOCIAL HISTORY: The patient still has nausea after the NG tube being to suction for more than an yasir r and a half. Patient was recently hospitalized for bowel obstruction at home, readmitted, and on 01/06/2016, Dr. Armond streeter saw her for a history of emesis and she underwent EGD with NG tube replacement. She had a small ulceration with 4 mm in diameter GE junction consistent with NG tube trauma. She is on Eliquis. On 01/07/2018, she underwent laparoscopic adhesiolysis with noted adhesions in the distal small bowel, not attended to as the offending adhesions seemed to be tended to and released. She has done well up until this point without any nausea or vomiting or cramping. Patient continues on Eliquis. HOME MEDICATIONS: Nexium 40 mg a day, multivitamins bedtime, vitamin D3 at bedtime, calcium carbonat e b.i.d., Multaq 400 mg b.i.d., atorvastatin 10 mg at bedtime, lisinopril 5 mg daily, Eliquis 5 mg b. i.d. PAST SURGICAL HISTORY: Hysterectomy, tonsillectomy, bladder suspension with sling, postoperatively r equiring laparotomy for bowel obstruction without bowel resection, recent laparoscopic adhesiolysis a s described above, 01/07/2018. PAST MEDICAL HISTORY: Hypertension and atrial fibrillation, intermittently on Eliquis. REVIEW OF SYSTEM: Noncontributory. Echocardiogram and recent nuclear cardiac stress tests were normal. Recently followed by Dr. Esa servin. PHYSICAL EXAMINATION: VITAL SIGNS: 5 feet 2, 116 pounds, 21 BMI, 98.1, 76, 150/70. HEAD, EARS, EYES, NOSE, AND THROAT: Unremarkable. LUNGS: Clear to auscultation. CARDIAC: Regular rate and rhythm without murmur, rub, or gallop. ABDOMEN: Soft, distended. Occasional bowel sounds. NG tube present at 50 cm. EXTREMITIES: Unremarkable. ASSESSMENT AND PLAN: 1. Small-bowel obstruction, recurrent. She has been on Eliquis. We will hold that. She has a hist ory of NG tube trauma. We would advance her NG tube to 65 cm. We will repeat abdominal x-rays today and tomorrow. Follow her clinically. She may need operative intervention and most likely laparotom y, adhesiolysis. These adhesions were too dense distally six weeks ago to address laparoscopically. 2. Atrial fibrillation, on Eliquis. 3. Hypertension.
--- NOTE | 2018-02-12 11:31 | RAD ---
CHEST ONE VIEW: ABDOMEN TWO VIEWS: HISTORY: Small bowel obstruction. COMPARISON: 01/07/2018 FINDINGS: CHEST: A nasogastric tube extends down the diaphragm. The distal tip is in the left upper quadrant. There is S-shaped curvature of the thoracic and lumbar spine. Atherosclerosis of the aorta. Leticia l cardiac silhouette. Persisting blunting of the left costophrenic angle. Stable hyperinflation wit hout consolidation or mass. No pneumothorax or osseous abnormalities. ABDOMEN: Air-filled loops of small bowel in the left hemiabdomen. Partial obstructive process canno t be excluded. There is some air attenuation and fecal material in the right hemicolon. Contrast is noted in the right intrarenal collecting system, as well as in the urinary bladder. There are some scattered air-fluid levels. No pneumoperitoneum. IMPRESSION: 1. No acute cardiopulmonary process. 2. Air-filled loops of small bowel. Correlate for partial small bowel obstruction. POS: [facility]
[2018-02-12] MEDS ORDERED: ISOVUE-370 76%-LOCM 1 ML ONE (14:43)
[2018-02-12] MEDS: Pantoprazole 40 MG VIAL IVP SCH (20:20)
[2018-02-12] MEDS: Acetaminophen 1,000 MG in Premix Bag 1 BAG IVPB PRN (20:52)
[2018-02-13 03:45] LABS: #Eosinphils 0.1 thou/uL (0.0-0.7); #Lymphocytes 1.1 thou/uL (1.20-3.40); #Monocytes 0.9 thou/uL (0.11-0.59); #Neutrophils 4.7 thou/uL (1.40-6.50); %Basophils 0.5 % (0.0-1.0); %Eosinophils 0.7 % (0.0-10.0); %Lymphocytes 16.6 % (21.0-51.0); %Monocytes 13.6 % (0.0-10.0); %Neutrophils 68.6 % (42.0-75.0); Hemoglobin 10.3 g/dL (12.0-16.0); Mean Corpuscular HGB CONC 33.1 g/dL (32.0-36.0); Mean Corpuscular Hemoglobin 29.4 pg (27.0-31.0); Mean Corpuscular Volume 88.8 fl (81.0-99.0); Mean Platelet Volume 6.9 fL (7.4-10.4); Platelet Count 317 thou/uL (130-400); RBC Distribution Width 12.3 % (11.5-14.5); Red Blood Cell (RBC) Count 3.51 mill/uL (4.20-5.40); White Blood Cell (WBC) Count 6.9 thou/uL (4.8-10.8)
[2018-02-13 04:09] LABS: Anion Gap 10 mmol/L (10-20); BUN (Urea Nitrogen) 8 mg/dL (9.8-20.1); Calc. Creatinine Clearance 52 mL/min (70-130); Calcium 8.4 mg/dL (7.8-10.44); Carbon Dioxide 23 mmol/L (23-31); Chloride 107 mmol/L (98-107); Estimated GFR-MDRD 77; Glucose 99 mg/dL (83-110); Potassium 3.9 mmol/L (3.5-5.1); Sodium 136 mmol/L (136-145)
[2018-02-13] MEDS: Acetaminophen 1,000 MG in Premix Bag 1 BAG IVPB PRN (07:55)
[2018-02-13] MEDS: Pantoprazole 40 MG VIAL IVP SCH ×2 (07:55→20:31)
[2018-02-13] MEDS ORDERED: Piperacillin/Tazobactam 3.375 GM in Sodium Chloride 0.9% 100 ML IVPB SCH ×2 (08:15→12:30)
--- NOTE | 2018-02-13 10:48 | PRG ---
DATE OF SERVICE: 02/13/2018 SUBJECTIVE: Ms. Katelyn Deras has an NG tube in place. It has not put out much overnight, although i t was in good position verified by x-ray yesterday, 50 mL, 24 hour drainage. She has not passed any flatus or stool. Her abdomen remains distended. Yesterday's abdominal x-rays revealed air fluid lev els and consistent with a bowel obstruction, she continues to have nausea when the tube is clamped. OBJECTIVE: VITAL SIGNS: 98 degrees, 80, 18, 135/77. LUNGS: Clear to auscultation. CARDIAC: Regular rate and rhythm without murmur or gallop. ABDOMEN: Soft, distended, tympanitic. LABORATORY DATA: White count 6, hemoglobin 10.3. Basic metabolic profile was normal. ASSESSMENT AND PLAN: Small-bowel obstruction. I have canceled her abdominal x-rays this morning. I have discussed with her treatment options including continuing NG tube suction, small bowel follow t hrough, but without any evidence of bowel function and x-rays, CAT scans consistent with a bowel obst ruction recurrent in a six weeks interval after laparoscopy, I would recommend laparotomy, adhesiolys is. The patient is in agreement. We will plan this under general anesthesia and tap block. We will plan this later today.
[2018-02-13] MEDS ORDERED: Midazolam HCl 2 mg/2 ml Vial ONE ×2 (11:37→11:43)
[2018-02-13] MEDS ORDERED: Fentanyl 250 MCG/5 ML VIAL ONE (11:37)
[2018-02-13] MEDS ORDERED: Dexamethasone 4 mg/ml Vial ONE (11:43)
[2018-02-13] MEDS ORDERED: Fentanyl 100 MCG/2 ML VIAL ONE (11:43)
[2018-02-13] MEDS ORDERED: Promethazine HCl 25 MG/ML VIAL IM PRN (12:13)
[2018-02-13] MEDS ORDERED: Ondansetron HCl/PF 4 MG/2 ML Vial IVP PRN (12:13)
[2018-02-13] MEDS ORDERED: Bupivacaine HCl 0.5%/Epinephrine 1:200,000/PF 30 ml Vial ONE (12:16)
[2018-02-13] MEDS ORDERED: Glycopyrrolate 0.2 MG/ML 5 ML SYRINGE ONE (12:30)
[2018-02-13] MEDS ORDERED: Succinylcholine Chloride 20 MG/ML 10 ml SYRINGE FS ONE (12:30)
[2018-02-13] MEDS ORDERED: PROPOFOL 200 MG/20 ML VIAL ONE (12:30)
[2018-02-13] MEDS ORDERED: Lidocaine 1% PF 5 ML VIAL ONE (12:30)
[2018-02-13] MEDS ORDERED: Piperacillin/Tazobactam 3.375 GM VIAL ONE (12:40)
--- NOTE | 2018-02-13 14:15 | OP ---
DATE OF PROCEDURE: 02/13/2018 PREOPERATIVE DIAGNOSES: Small-bowel obstruction, poor IV access. POSTOPERATIVE DIAGNOSES: Small-bowel obstruction, poor IV access. PROCEDURE: Exploratory laparotomy, lysis of adhesions. A right subclavian vein central line. A com plete bowel obstruction noted due to adhesions. SURGEON: Dr. Filippo Obrien ANESTHESIA: General anesthesia, tap block. ESTIMATED BLOOD LOSS: None. BLOOD TRANSFUSED. None. PROCEDURE IN DETAIL: The patient was taken to the operating room where under general anesthesia and tap block, abdomen was prepared with ChloraPrep, draped in routine fashion after Trevizo catheter place d and after a right subclavian vein line placed. Smaller caliber NG tube removed and an 18-Botswanan NG tube placed in the stomach through the nares. A midline incision made and carried down subcutaneou s tissue from the umbilicus to the pubis through the old scar and fascia and abdominal cavity sharply . There were no visceral adhesions to the abdominal wall. There were extensive adhesions in the pel vis from a prior hysterectomy, adhesions taken down. The offending obstructive point from adhesions was appreciated and distal small bowel ileum was markedly decompressed, proximal small bowel dilated. Adhesions taken down, bowel run 3 times, ligament of Treitz to cecum and one serosal tear closed wi th interrupted suture of 3-0 silk. Otherwise, there were no other injuries. Small bowel contents mi lked retrograde in the stomach and evacuated from the stomach through the NG tube. As sponge and nee dle counts were correct. Seprafilm was placed and midline fascia closed with continuous suture of #1 PDS. Skin, subcutaneous tissue irrigated. Skin approximated with continuous subcutaneous suture of 4-0 Monocryl and DermaGlue applied. At the beginning the procedure, right periclavicular area prepared with ChloraPrep, draped in routine fashion. Seldinger technique used to place right subclavian vein central line removed the J-wire, s ecuring the catheter and sutures of 3-0 silk. Biopatch sterile dressing applied. Each port aspirate d blood and flushed with saline solution.
[2018-02-13] MEDS: Lactated Ringer's 1,000 ML IV SCH ×2 (16:03→23:54)
--- NOTE | 2018-02-13 17:44 | RAD ---
PORTABLE CHEST: History: Assess central line placement. Comparison: 02-12-18 FINDINGS: A central line has been placed via the right subclavian vein. The line enters the right internal jugu lar vein and the tip overlying is not imaged on this exam. Lungs remain clear. No pneumothorax. Heart and mediastinum unremarkable. Scoliotic curvature of the s pine again noted. IMPRESSION: Central line imaged in the right internal jugular vein. The tip is not visualized. The patient's nurse on Surgery B was notified of this finding at the time of dictation. Dr. Obrien wi ll be notified. POS: [facility]
[2018-02-13] MEDS: Acetaminophen 1,000 MG in Premix Bag 1 BAG IVPB SCH ×2 (18:09→23:48)
[2018-02-13] MEDS: Ketorolac Tromethamine 30 MG/ML VIAL IVP SCH ×2 (18:09→23:48)
[2018-02-13] MEDS: Enoxaparin Sodium 40 MG/0.4 ML SYRINGE SC SCH (20:31)
[2018-02-14] MEDS: Acetaminophen 1,000 MG in Premix Bag 1 BAG IVPB SCH ×3 (06:08→18:34)
[2018-02-14] MEDS: Ketorolac Tromethamine 30 MG/ML VIAL IVP SCH ×3 (06:08→18:34)
[2018-02-14 06:12] LABS: #Lymphocytes 0.5 thou/uL (1.20-3.40); #Monocytes 0.6 thou/uL (0.11-0.59); #Neutrophils 5.5 thou/uL (1.40-6.50); %Lymphocytes 7.5 % (21.0-51.0); %Monocytes 8.6 % (0.0-10.0); Hemoglobin 9.6 g/dL (12.0-16.0); Mean Corpuscular HGB CONC 32.6 g/dL (32.0-36.0); Mean Corpuscular Hemoglobin 28.7 pg (27.0-31.0); Mean Corpuscular Volume 88.2 fl (81.0-99.0); Mean Platelet Volume 6.8 fL (7.4-10.4); Platelet Count 289 thou/uL (130-400); RBC Distribution Width 12.1 % (11.5-14.5); Red Blood Cell (RBC) Count 3.34 mill/uL (4.20-5.40); White Blood Cell (WBC) Count 6.6 thou/uL (4.8-10.8)
[2018-02-14 06:37] LABS: ALT (SGPT) 10 U/L (8-55); AST (SGOT) 13 U/L (5-34); Albumin 3.1 g/dL (3.4-4.8); Alkaline Phosphatase 42 U/L (40-150); Anion Gap 7 mmol/L (10-20); BUN (Urea Nitrogen) 11 mg/dL (9.8-20.1); Bilirubin, Total 0.4 mg/dL (0.2-1.2); Calc. Creatinine Clearance 53 mL/min (70-130); Calcium 8.5 mg/dL (7.8-10.44); Carbon Dioxide 28 mmol/L (23-31); Chloride 106 mmol/L (98-107); Estimated GFR-MDRD 78; Globulin 1.7 g/dL (2.4-3.5); Glucose 103 mg/dL (83-110); Magnesium 1.9 mg/dL (1.6-2.6); Phosphorus 4.6 mg/dL (2.3-4.7); Potassium 4.1 mmol/L (3.5-5.1); Protein, Total 4.8 g/dL (6.0-8.3); Sodium 137 mmol/L (136-145)
[2018-02-14] MEDS: Pantoprazole 40 MG VIAL IVP SCH ×2 (08:46→21:15)
[2018-02-14] MEDS: Lactated Ringer's 1,000 ML IV SCH ×2 (09:09→16:35)
--- NOTE | 2018-02-14 17:28 | PRG ---
DATE OF SERVICE: 02/14/2018 SUBJECTIVE: Ms. Deras is doing well today. Her NG tube was removed earlier this morning and she had no NG tube output overnight. She has not had any nausea or vomiting by this afternoon. Trevizo cathet er is out and she has voided. OBJECTIVE: VITAL SIGNS: Temperature 98.6 degrees, heart rate 82, respiratory rate 14, blood pressure 129/75. LUNGS: Clear to auscultation. CARDIAC: Regular rate and rhythm without murmur or gallop. ABDOMEN: Soft, slightly distended, protuberant, mild tympany. Diminished bowel sounds. No stool or flatus. EXTREMITIES: Unremarkable. LABORATORY DATA: White count 6, hemoglobin 9.6. Basic metabolic profile normal. ASSESSMENT AND PLAN: Recovering GI function. We will start her on clear liquids today and she will advance slowly. If she tolerates liquids well, she can be saline locked. I have told her if she exp erienced reflux, bloating, belching, indigestion, she should back off the fluids.
[2018-02-14] MEDS: Enoxaparin Sodium 40 MG/0.4 ML SYRINGE SC SCH (21:16)
[2018-02-15] MEDS: Acetaminophen 1,000 MG in Premix Bag 1 BAG IVPB SCH ×3 (00:33→13:01)
[2018-02-15] MEDS: Ketorolac Tromethamine 30 MG/ML VIAL IVP SCH ×3 (00:34→13:01)
[2018-02-15] MEDS: Lactated Ringer's 1,000 ML IV SCH ×2 (00:39→08:42)
[2018-02-15] MEDS ORDERED: Dronedarone HCl 400 MG TAB PO SCH ×2 (08:00→17:00)
[2018-02-15] MEDS: Pantoprazole 40 MG VIAL IVP SCH (08:42)
[2018-02-15] MEDS ORDERED: Lisinopril 5 MG TAB PO SCH (09:00)
[2018-02-15] MEDS ORDERED: Ibuprofen 600 MG TAB PO PRN (10:20)
[2018-02-15] MEDS ORDERED: traMADol HCl 50 MG TAB PO PRN ×2 (10:20)
[2018-02-15] MEDS ORDERED: Acetaminophen 500 MG TAB PO PRN (10:20)
--- NOTE | 2018-02-15 11:09 | PRG ---
DATE OF SERVICE: 02/15/2018 Katelyn Deras is doing well today. She is tolerating her liquids. She has not had any nausea or vomi ting. She is passing flatus. Her abdomen is still slightly distended, but it is improving if passes flatus. She is tolerating clear liquids. PHYSICAL EXAMINATION: VITAL SIGNS: Temperature 98.1 degrees, 78, 110/58. LABORATORY: No laboratories today. LUNGS: Clear to auscultation. CARDIAC: Regular rate and rhythm without murmur or gallop. ABDOMEN: Soft, mildly distended, minimally tympanitic with good bowel sounds. Wound well healed, no wound problems. EXTREMITIES: No edema. ASSESSMENT AND PLAN: Recovering bowel function after laparotomy, adhesiolysis. There were no bowel resection performed. We will advance diet as tolerated. The patient more than likely will be discha rged home later today. She is having very little pain. Her tap block preoperatively has worked well for postoperative pain control. We will order nonnarcotic analgesics, Tylenol, Motrin and Ultram to use as needed. She is listed as having a CODEINE allergy, but actually this is a reaction in that c odeine causes nausea and Ultram should be safe to use for analgesics. The patient can be discharged home and she should not lift more than 20 pounds for 6 weeks postoperatively. She should follow up in my office in 2-3 weeks.
[2018-02-15 11:37] VITALS: BP 118/69; TEMP 98.3
--- NOTE | 2018-02-15 15:04 | DIS ---
DATE OF ADMISSION: 02/12/2018 DATE OF DISCHARGE: 02/15/2018 DISCHARGE DIAGNOSES: Small-bowel obstruction. PROCEDURES THIS HOSPITALIZATION: CT scan of abdomen and pelvis. A laparotomy through her old midlin e incision, infraumbilical to pubis, with adhesiolysis. No bowel resection required, placement of a central line (poor IV access). HISTORY: A 78-year-old female status post laparoscopic adhesiolysis for what was thought to be offen ding adhesions, as proximal to this there were small bowel dilatation, distal decompression with note d distal small bowel adhesions not addressed laparoscopically. She did well for 6 weeks, but present s now with nausea and vomiting, lack of flatus or stool. CAT scan suggested complete bowel obstructi on. NG tube was placed and overnight she did not have much output from her NG tube, but she did not pass any stool or flatus. Considering the events and finding, she was felt to have a complete bowel obstruction and options given for small bowel follow-through versus proceeding to the operative inter vention. She chose the latter hoping to avoid future hospitalization. FINDINGS AT OPERATION: Were that of a complete bowel obstruction due to adhesions, dense in the pelv is from a prior hysterectomy. Subcuticular sutures were used. Postoperatively, she convalesced and resumed bowel function, discharged home to resume her home medications as well as Tylenol, Ultram, Mo iraida [id number] for pain control. Follow up in my office in 2-3 weeks. No lifting over 25 aylin nds. She will resume her Eliquis tomorrow and her home medications immediately, namely Nexium, multi vitamins, vitamin D3, Multaq 400 mg b.i.d., atorvastatin 10 mg at bedtime, lisinopril 5 mg daily, and Eliquis. She will resume tomorrow 5 mg b.i.d., MiraLax daily.
[2018-02-15] MEDS ORDERED: Multivitamin W/ Minerals 1 TAB PO SCH (21:00)
[2018-02-15] MEDS ORDERED: Calcium Carbonate + Vit D 1 TAB PO SCH (21:00)
[2018-02-15] MEDS ORDERED: Atorvastatin Calcium 10 MG TAB PO SCH (21:00)
[2018-02-16] MEDS ORDERED: Lisinopril 5 MG TAB PO SCH (09:00)
[2018-02-16] MEDS ORDERED: Polyethylene Glycol 3350 17 GM Packet PO SCH (09:00)
--- NOTE | 2018-02-21 20:49 | PQF ---
YVETTE BRAVO RICHARD D MD [id number] SURG B- [id number] CLINICAL DOCUMENTATION CLARIFICATION FORM: POST DISCHARGE Addendum to original discharge summary date: ____ Late entry note date: __ DATE: 02/21/18 ATTN: Dr. Obrien Please exercise your independent, professional judgment in responding to the clarification form. Clinical indicators are provided on the bottom of this form for your review Please check appropriate box(s): In the description of the operative procedure a serosal tear was noted by the surgeon. If possible would you please further clarify if this was: [ ] Incidental occurrence inherent in the surgical procedure [ ] Complication of the procedure [ ] Other [ ] Unable to determine CLINICAL INDICATORS - SIGNS / SYMPTOMS / LABS The procedure note documents "...and one serosal tear closed with interupted suture 3-0 silk. Otherwise, there were no other injuries." RISK FACTORS Dense adhesions TREATMENTS: Suture repair (This form is maintained as a part of the permanent medical record) 2014 [employer]. All Rights Reserved DERREK Castro, [email or web address] [phone] MICHELLE
== END 2018-02-15 13:00 | disposition home or self-care (01) | DRG 337 ==
LOC: ERS 23:46 → SURG B 02-12 03:41
PROVIDERS: ADMIT Specialist; ATTEND Specialist
PROC: 0DNW0ZZ Release Peritoneum, Open Approach (ICD-10-PCS; principal; 2018-02-13)
PROC: 02HV33Z Insertion of Infusion Device into Superior Vena Cava, Percutaneous Approach (ICD-10-PCS; 2018-02-13)
DX: K56.52 Intestinal adhesions [bands] with complete obstruction (principal); I48.91 Unspecified atrial fibrillation; I10 Essential (primary) hypertension
CPT/HCPCS: 36415; 71045; 74022; 74177; 80048; 80053; 81003; 82550; 82553; 83690; 83735; 83880; 84100; 84484; 85025; 85610; 85730; 93005; 96361; 96374; 96375; A4216; C9113; J0131; J0670; J1100; J1650; J1885; J2001; J2250; J2270; J2405; J2543; J2704; J3010; J7050

== ENCOUNTER 2018-05-02 13:52 | Outpatient (CLI) | payer MEDICARE | END 2018-05-02 13:53 | disposition home or self-care (01) | LOC: BICMAMMO 13:52 | PROVIDERS: ATTEND Family Medicine | DX: Z12.31 Encounter for screening mammogram for malignant neoplasm of breast (principal) | CPT/HCPCS: 77063; 77067 ==

== ENCOUNTER 2018-07-10 01:50 | Inpatient (IN) | payer MEDICARE ==
[2018-07-10 02:36] LABS: #Lymphocytes 0.5 thou/uL (1.20-3.40); #Monocytes 0.2 thou/uL (0.11-0.59); #Neutrophils 6.3 thou/uL (1.40-6.50); %Basophils 0.1 % (0.0-1.0); %Lymphocytes 7.1 % (21.0-51.0); %Monocytes 2.6 % (0.0-10.0); %Neutrophils 90.2 % (42.0-75.0); Hemoglobin 11.4 g/dL (12.0-16.0); Mean Corpuscular Volume 79.4 fL (78.0-98.0); Mean Platelet Volume 7.3 fL (7.4-10.4); Platelet Count 269 thou/uL (130-400); RBC Distribution Width 14.2 % (11.5-14.5); Red Blood Cell (RBC) Count 4.22 mill/uL (4.20-5.40)
[2018-07-10 02:56] LABS: ALT (SGPT) 16 U/L (8-55); AST (SGOT) 20 U/L (5-34); Albumin 4.4 g/dL (3.4-4.8); Alkaline Phosphatase 60 U/L (40-150); Anion Gap 16 mmol/L (10-20); BUN (Urea Nitrogen) 15 mg/dL (9.8-20.1); Bilirubin, Total 0.6 mg/dL (0.2-1.2); Calc. Creatinine Clearance 0 mL/min (70-130); Calcium 9.3 mg/dL (7.8-10.44); Carbon Dioxide 20 mmol/L (23-31); Chloride 103 mmol/L (98-107); Estimated GFR-MDRD 52; Globulin 2.8 g/dL (2.4-3.5); Glucose 181 mg/dL (83-110); Lipase 34 U/L (8-78); Potassium 4.1 mmol/L (3.5-5.1); Protein, Total 7.2 g/dL (6.0-8.3); Sodium 135 mmol/L (136-145)
[2018-07-10] MEDS ORDERED: Ondansetron HCl/PF 4 MG/2 ML Vial ONE (03:24)
[2018-07-10 05:17] LABS: Bilirubin Negative (Negative); Blood, Urine Negative (Negative); Clarity CLEAR (Clear); Glucose, Urine (Dipstick) Negative (Negative); Leukocyte Negative (Negative); Nitrite Negative (Negative); Protein, Urine (Dipstick) 30 mg/dL (Neg-Trace); Specific Gravity, Urine 1.034 (1.002-1.036); Urobilinogen 0.2 mg/dL (0.2-1.0); pH, Urine 7.5 (5.0-9.0)
[2018-07-10 05:20] LABS: Bacteria/HPF None Seen HPF (None Seen); Hyaline Casts/LPF 0-3 HYALINE CAST LPF (0-3 Hyaline); RBC/HPF 0-3 HPF (0-3); Squamous Epithelial 0-3 HPF (0-3); WBC/HPF 0-3 HPF (0-3)
[2018-07-10] MEDS ORDERED: Promethazine HCl 25 MG/ML VIAL ONE (05:35)
[2018-07-10] MEDS ORDERED: Morphine 4 MG/ML VIAL ONE (05:51)
[2018-07-10] MEDS ORDERED: hydrALAZINE 20 MG/ML VIAL SLOW IVP PRN (07:51)
[2018-07-10] MEDS ORDERED: Morphine 4 MG/ML VIAL SLOW IVP PRN (07:51)
--- NOTE | 2018-07-10 07:52 | RAD ---
ABDOMEN 2 VIEWS AND 1 VIEW CHEST XRAY: HISTORY: Abdominal pain. History of small bowel obstruction. COMPARISON: Chest radiograph 02/12/18. FINDINGS: There is some scarring in the left lung base. There is moderate S-shaped scoliosis. Old right-sided rib fractures. Mild gaseous distention of the stomach. There are a few air fluid levels in the left upper quadrant small bowel. Moderate stool burden. Moderate degenerative z at the SI joints. IMPRESSION: A few mildly distended loops of small bowel in the left upper quadrant, ileus or early obstruction. CT recommended. POS: [facility]
[2018-07-10] MEDS ORDERED: Acetaminophen 1,000 MG in Premix Bag 1 BAG IVPB PRN (07:53)
--- NOTE | 2018-07-10 08:05 | CT ---
PRELIMINARY REPORT/[facility]/EMERGENTY AFTER-HOURS PROCEDURE CT Abdomen and Pelvis With Intravenous Contrast CLINICAL HISTORY: 78 years old, female; Signs and symptoms; Nausea and vomiting; Prior surgery; Patient HX: F78 w/ HX o f afib and sbo presented to ed C/O abdominal pain, n/v, and bloating onset yesterday afternoon around 1500 with the abdominal pain first and then vomiting began at 1800. Pt reports she has HX of sbo 3x. First episode on jan 02. Surgery performed by dr. Obrien pt reports symptoms feel similar to previou s episodes. Pt reports she was able to have a bm today, describes it as tight. Pt reports eating a ham sandwich today for lunch and some nuts at 1400, but denies eating dinner. Ems reports giving th e patient 8 mg and 500 ml ns. Pt describes pain as intermittent and located at the lower aspect of he r abdomen; Additional info: *pt unable to drink oral contrast due to nausea/vomiting TECHNIQUE: Axial computed tomography images of the abdomen and pelvis with intravenous contrast. Coronal reformatted images were created and reviewed. COMPARISON: No relevant prior studies available. FINDINGS: Lung bases: Atelectasis at the lung bases. ABDOMEN: Liver: Unremarkable. No mass. Gallbladder and bile ducts: Unremarkable. No calcified stones. No ductal dilation. Pancreas: Unremarkable. No mass. No ductal dilation. Spleen: Unremarkable. No splenomegaly. Adrenals: Unremarkable. No mass. Kidneys and ureters: A small cyst in the left kidney. No hydronephrosis. Stomach and bowel: Unremarkable. No obstruction. No mucosal thickening. PELVIS: Appendix: No findings to suggest acute appendicitis. Bladder: Unremarkable. No mass. Reproductive: The patient has had a hysterectomy. ABDOMEN and PELVIS: Intraperitoneal space: Small bowel structure with transition point in the left midabdomen, series 601 images 35 through 45. No evidence of perforation. There is small free fluid in the abdomen. No free a ir. Bones/joints: No acute fracture. No dislocation. There is an S-curve scoliosis with degenerative changes in the lumbar spine. Soft tissues: Unremarkable. Vasculature: Unremarkable. No abdominal aortic aneurysm. Lymph nodes: Unremarkable. No enlarged lymph nodes. IMPRESSION: Small bowel obstruction without perforation. Left renal cyst. Status post hysterectomy. Thank you for allowing us to participate in the care of your patient. Dictated and Authenticated by: Feliberto Michelle MD 07/10/2018 5:16 AM Central Time ([place] & [place]) CT OF ABDOMEN AND PELVIS PERFORMED WITH CONTRAST ENHANCEMENT: HISTORY: Abdominal pain. History of atrial fibrillation and small bowel obstruction. COMPARISON: A 02/12/18 exam. The lung bases show some chronic-appearing change. The lung bases show some chronic-appearing change . The liver, spleen, pancreas, and gallbladder regions all appear unremarkable. Right and left adrenal glands and right and left kidneys are normal in size. There is a small subcen timeter left renal cyst present. No significant periaortic or mesenteric adenopathy. There is air within dilated small bowel loops to the more distal ileum level where there is a transit ion to a nondilated small bowel. There is some trace free fluid seen in the pelvis. No signs for pn eumatosis. I do not see any definite bowel wall edema. CT OF PELVIS PERFORMED WITH CONTRAST ENHANCEMENT: Dilated small bowel loops are seen. The bladder is normal in position. No evidence of any significa nt adenopathy or mass. The appendix is difficult to definitively visualize. IMPRESSION: 1. Findings compatible with a moderate small bowel obstruction. Transition point appears to be in t he distal ileum presumably on the basis of adhesions. There is some free fluid seen in the cul-de-sa c region. 2. This report is in agreement with the temporary report issued by [facility]. POS: [facility]
--- NOTE | 2018-07-10 08:19 | HP ---
HISTORY OF PRESENT ILLNESS: Katelyn Deras is a 78-year-old female who presented to the emergency r oom with abdominal pain, onset yesterday, worsening through the night. She had plain abdominal x-ray suggesting bowel obstruction, although she does have some gas in the colon. She subsequently underw ent a CAT scan of the abdomen and pelvis revealing findings suggestive of a bowel obstruction. NG tu be was placed requested at 65-70 cm, but now located at 53 cm. Very little output has been returned. We will obtain abdominal x-ray to confirm appropriate placement. ALLERGIES: CODEINE. TOBACCO: None. ALCOHOL: None. MEDICATIONS: Multivitamins daily, lisinopril 5 mg a day, Nexium 40 mg a day, Multaq 400 mg b.i.d., v itamin D3 at bedtime, Os-Alex daily, atorvastatin 10 mg at bedtime, Eliquis 5 mg b.i.d. She took a do se of Eliquis yesterday morning, none yesterday evening or this morning. [id number]. The patient had a colonoscopy about 7 years ago before moving to this area. She had an upper endosco py earlier this year by Dr. Briseno that revealed an ulceration from an NG tube trauma. PAST SURGICAL HISTORY: Hysterectomy, tonsillectomy, bladder suspension with sling postoperatively, requiring laparotomy for bowel obstruction without bowel resection, recent laparoscopic adhesiolysis earlier this year, 01/07/2018. She had a recurrent bowel obstruction 02/2018 requiring laparotomy, a dhesiolysis. She had a fairly quick recovery postoperatively, she has been doing well in the interim . PAST MEDICAL HISTORY: Atrial fibrillation on anticoagulation, hypertension. REVIEW OF SYSTEMS: Noncontributory. PHYSICAL EXAMINATION: VITAL SIGNS: Heart rate 76, 120/74, respiratory rate 18. HEENT: Unremarkable. LUNGS: Clear to auscultation. CARDIAC: Regular rate and rhythm without murmur or gallop. ABDOMEN: Distended, tympanitic, nontender. NG tube in place to 52 cm from the nares. EXTREMITIES: No edema. ABDOMEN: No guarding. LABORATORY: White count 7, hemoglobin 11.4, sodium 135, potassium 4.1, chloride 103, glucose 181, li pase 34. ASSESSMENT AND PLAN: 1. Recurrent bowel obstruction. NG tube to suction. We will continue NG tube suction. We will obt ain x-ray to confirm proper placement, obtain 3 view abdomen and small bowel follow through tomorrow. Hopefully, this will resolve nonoperatively. 2. Atrial fibrillation on Eliquis, hold Eliquis for now. 3. Elevated cholesterol.
--- NOTE | 2018-07-10 08:20 | RAD ---
PORTABLE CHEST: HISTORY: Evaluation for NG tube placement. COMPARISON: 07/05/05 study. FINDINGS: Heart size is borderline to slightly enlarged with atherosclerotic change of the aorta. The lungs ar e clear of infiltrate. Scoliotic change of the spine is noted. NG tube is seen with the tip near th e GE junction and needs to be advanced 3-4 inches. IMPRESSION: 1. Nasogastric tube with tip in the distal esophagus needs to be advanced 3-4 inches. 2. Cardiomegaly. 3. Scoliosis. POS: [facility]
[2018-07-10] MEDS ORDERED: ISOVUE-370 76%-LOCM 1 ML ONE ×2 (08:34→08:45)
[2018-07-10] MEDS: Lactated Ringer's 1,000 ML IV SCH ×2 (08:35→17:13)
[2018-07-10 08:58] VITALS: BMI 21.1
[2018-07-10] MEDS: Famotidine/PF 20 mg/2ml Vial SLOW IVP SCH ×2 (08:58→19:58)
--- NOTE | 2018-07-10 09:52 | RAD ---
AP ABDOMINAL RADIOGRAPH: Date: 07-10-18 History: Evaluate nasogastric tube placement. Comparison: 07-10-18 FINDINGS: This exam includes the chest. Cardiac silhouette and pulmonary vasculature are within normal limits. Nasogastric tube is now noted in place with the tip overlying the left midabdomen, probably overlying the region of the body of the stomach. There is residual contrast seen within the renal collecting systems and visualized bilatera l ureters. Bowel gas pattern is nonspecific. The pelvis is not imaged. There is S-shaped scoliotic cu rvature of the thoracolumbar spine. IMPRESSION: Nasogastric tube noted in place with the tip overlying the expected location of the body of the stoma ch. POS: [facility]
[2018-07-10] MEDS: Ondansetron HCl/PF 4 MG/2 ML Vial IVP PRN ×2 (11:45→17:13)
[2018-07-10] MEDS: Ketorolac Tromethamine 30 MG/ML VIAL IVP PRN (19:51)
[2018-07-10] MEDS: Enoxaparin Sodium 40 MG/0.4 ML SYRINGE SC SCH (19:58)
[2018-07-11] MEDS: Lactated Ringer's 1,000 ML IV SCH ×4 (00:01→20:28)
[2018-07-11 06:02] LABS: #Monocytes 0.8 thou/uL (0.11-0.59); #Neutrophils 4.7 thou/uL (1.40-6.50); %Basophils 0.1 % (0.0-1.0); %Eosinophils 0.6 % (0.0-10.0); %Lymphocytes 15.2 % (21.0-51.0); %Monocytes 12.5 % (0.0-10.0); %Neutrophils 71.6 % (42.0-75.0); Hemoglobin 10.6 g/dL (12.0-16.0); Mean Corpuscular HGB CONC 34.4 g/dL (32.0-36.0); Mean Corpuscular Hemoglobin 27.5 pg (27.0-31.0); Mean Corpuscular Volume 80.1 fL (78.0-98.0); Mean Platelet Volume 7.9 fL (7.4-10.4); Platelet Count 228 thou/uL (130-400); RBC Distribution Width 14.6 % (11.5-14.5); Red Blood Cell (RBC) Count 3.86 mill/uL (4.20-5.40); White Blood Cell (WBC) Count 6.5 thou/uL (4.8-10.8)
[2018-07-11] MEDS: Ketorolac Tromethamine 30 MG/ML VIAL IVP PRN ×2 (06:22→15:16)
[2018-07-11 06:26] LABS: ALT (SGPT) 10 U/L (8-55); AST (SGOT) 18 U/L (5-34); Albumin 3.4 g/dL (3.4-4.8); Alkaline Phosphatase 53 U/L (40-150); Anion Gap 8 mmol/L (10-20); BUN (Urea Nitrogen) 12 mg/dL (9.8-20.1); Bilirubin, Total 0.7 mg/dL (0.2-1.2); Calc. Creatinine Clearance 42 mL/min (70-130); Calcium 8.4 mg/dL (7.8-10.44); Carbon Dioxide 27 mmol/L (23-31); Chloride 106 mmol/L (98-107); Estimated GFR-MDRD 63; Globulin 2.2 g/dL (2.4-3.5); Glucose 96 mg/dL (83-110); Protein, Total 5.6 g/dL (6.0-8.3); Sodium 137 mmol/L (136-145)
[2018-07-11] MEDS ORDERED: MD-Gastroview 120 ML BOT ONE (10:04)
--- NOTE | 2018-07-11 10:35 | RAD ---
RADIOGRAPH CHEST 1 VIEW RADIOGRAPH ABDOMEN 2 VIEWS: Date: 07-11-18 Time: 8:25 a.m. HISTORY: 78-year-old female follow up small bowel obstruction. COMPARISON: 07-10-18 2:13 a.m. FINDINGS: An NG tube has been placed, which is curled in the expected location of the fundus of the stomach. No gastric distention of the stomach. There are multiple dilated small bowel loops with air fluid level s in the left side of the abdominal cavity. There is gas in the rectum. There is a moderate amount of colonic stool with scattered colonic gas. The amount of small bowel gas has slightly increased. No p neumoperitoneum. There is a new finding of a small airspace density at the medial base of the left lower lobe. Promine nt levoscoliosis at the thoracolumbar junction and compensatory dextroscoliosis of mid-thoracic spine . The rest of the visualized lung ferro are clear. There is another new finding of blunting of the l eft lateral costophrenic angle. No cardiomegaly. No pneumothorax identified. IMPRESSION: 1. Nonspecific bowel gas pattern. This could either be a partial small bowel obstruction or ileus. Ba sed on the CT appearance of 07-10-18, this is favored to be a small bowel obstruction. 2. Interval placement of nasogastric tube. 3. Interval development of small airspace density in the left lower lobe. This could be atelectasis, less likely aspiration. 4. New small left pleural effusion. 5. S-shaped scoliosis. VIKASH [] POS: [facility]
[2018-07-11] MEDS: Ondansetron HCl/PF 4 MG/2 ML Vial IVP PRN (11:02)
[2018-07-11] MEDS: Famotidine/PF 20 mg/2ml Vial SLOW IVP SCH ×2 (11:02→20:28)
[2018-07-11] MEDS ORDERED: Meropenem 2 GM in Sodium Chloride 0.9% 100 ML IVPB SCH (13:45)
[2018-07-11] MEDS ORDERED: PHENYLEPHRINE-NS 100 MCG/ML 10 ML SYRINGE ONE (13:45)
[2018-07-11] MEDS ORDERED: Dexamethasone 20 MG/5 ML VIAL ONE (13:45)
[2018-07-11] MEDS ORDERED: Ondansetron HCl/PF 4 MG/2 ML Vial ONE (13:45)
[2018-07-11] MEDS ORDERED: Lidocaine 1% PF 5 ML VIAL ONE (13:45)
[2018-07-11] MEDS ORDERED: Succinylcholine Chloride 20 MG/ML 10 ml SYRINGE FS ONE (13:45)
[2018-07-11] MEDS ORDERED: PROPOFOL 200 MG/20 ML VIAL ONE (13:45)
[2018-07-11] MEDS ORDERED: Acetaminophen 1,000 MG in Premix Bag 1 BAG IVPB SCH (13:45)
[2018-07-11] MEDS ORDERED: Glycopyrrolate 0.2 MG/ML 5 ML SYRINGE ONE (13:45)
--- NOTE | 2018-07-11 13:47 | EKG ---
Test Reason : Blood Pressure : / mmHG Vent. Rate : 075 BPM Atrial Rate : 075 BPM P-R Int : 162 ms QRS Dur : 072 ms QT Int : 444 ms P-R-T Axes : 074 013 -02 degrees QTc Int : 495 ms Normal sinus rhythm Nonspecific T wave abnormality Prolonged QT Abnormal ECG Confirmed by SIRISHA ARIAS D.O. ([id number]), legal editor GABRIEL NEGRETE ([id number]) on 07/11/2018 1:47:34 PM Referred By: Confirmed By:SIRISHA ARIAS D.O.
--- NOTE | 2018-07-11 14:15 | RAD ---
SMALL BOWEL FOLLOW THROUGH: History: Small bowel obstruction. Comparison: Radiograph same day. FINDINGS: Patient was given contrast through the enteric tube. There is dilatation of the proximal small bowel loops measuring up to 4.3 cm. Contrast did not extend into the colon after 4 hours. IMPRESSION: Findings suggesting high grade distal small bowel obstruction. CODE: MALENA Obrien POS: [facility]
--- NOTE | 2018-07-11 14:22 | PRG ---
DATE OF SERVICE: 07/11/2018 SUBJECTIVE: Ms. Deras has 4-hour small bowel follow-through in progress. During this small bowel fol low-through, she has repeated nausea and vomiting. After the 4-hour , there is no progression o f contrast indicating complete bowel obstruction. She has not passed flatus or stool in the last 24 hours. She has an antecubital IV right, which is tenuous. She has poor IV access. Temperature 98.2 degrees, 60, 116/60. Overnight prior to the small bowel follow-through, NG tube output was only 30 mL. This morning, her white count was 6, hemoglobin 10.6. Basic metabolic profile normal. ASSESSMENT AND PLAN: Complete bowel obstruction. Would recommend laparoscopy, probable laparotomy a nd a central line. Risk of infection, bleeding and reoperation discussed. I have discussed with her a TAP block, which worked very well for her in February when she required a laparotomy. She states it gave her excellent pain relief for several days. Risk of operation including infection, bleeding, re operation, small bowel leakage, anastomotic disruption discussed. Discussed the situation with the elmira ramos's daughter and the patient and questions answered.
[2018-07-11] MEDS: Scopolamine 1.5 mg/72 hour Patch TD SCH (15:13)
[2018-07-11] MEDS ORDERED: Fentanyl 100 MCG/2 ML VIAL ONE (16:22)
[2018-07-11] MEDS ORDERED: Bupivacaine HCl 0.5%/Epinephrine 1:200,000/PF 30 ml Vial ONE (16:25)
[2018-07-11] MEDS ORDERED: Ketamine 50 MG/ML VIAL ONE (16:46)
[2018-07-11] MEDS ORDERED: Sodium Chloride 0.9% 10 ML ONE ×2 (17:52)
[2018-07-11] MEDS ORDERED: Promethazine HCl 25 MG/ML VIAL SLOW IVP PRN (18:47)
[2018-07-11] MEDS ORDERED: Promethazine HCl 25 MG/ML VIAL IM PRN (18:47)
[2018-07-11] MEDS ORDERED: Ondansetron HCl/PF 4 MG/2 ML Vial IVP PRN (18:47)
--- NOTE | 2018-07-11 19:07 | RAD ---
CHEST ONE VIEW: 07/11/18 HISTORY: Dyspnea. COMPARISON: 07/10/18. FINDINGS: The cardiac silhouette is magnified by projection. Pulmonary vasculature unremarkable. Lungs remain h yperinflated. Mediastinum midline with aortic calcification. Tip of a left subclavian central venous catheter overlies the superior vena cava. Nasogastric tube de scends in the stomach. IMPRESSION: Left subclavian central venous catheter is in good radiographic position. POS: [facility]
[2018-07-11] MEDS: Enoxaparin Sodium 40 MG/0.4 ML SYRINGE SC SCH (20:28)
[2018-07-12] MEDS: Acetaminophen 1,000 MG in Premix Bag 1 BAG IVPB SCH ×5 (00:15→23:38)
--- NOTE | 2018-07-12 01:56 | OP ---
DATE OF PROCEDURE: 07/11/2018 PREOPERATIVE DIAGNOSIS: Small-bowel obstruction. POSTOPERATIVE DIAGNOSIS: Small-bowel obstruction secondary to adhesions. PROCEDURES: 1. Laparoscopy converted to laparotomy (infraumbilical midline) with adhesiolysis. 2. Left subclavian vein central line triple lumens. SURGEON: Filippo Obrien MD ANESTHESIA: General tap block. PROCEDURE IN DETAIL: The patient was taken to the operating room under general anesthesia, Trevizo cat heter was placed. The abdomen was prepared with ChloraPrep, draped in routine fashion. Left lateral subcostal incision was made and pneumoperitoneum to 15 mmHg obtained with the Veress needle placed w ith a 5 port and laparoscope inserted. Abdominal wall was free of adhesions, mid left lateral abdomi nal incision was made and a 5 port placed in left lower quadrant, lateral incision was made and anoth er 5 port placed under laparoscopic visualization. Small bowel was proximally dilated, distally deco mpressed. There was evidence of complete bowel obstruction; however, could not find the obstructive process as the obstructive process was deep and towards the retroperitoneum and the dilated bowel was so deep, I could not safely proceed. Thus midline laparotomy undertaken and make an incision from t he old incisions at the umbilical level towards the pubis carried down through skin and subcutaneous tissue, midline fascia and abdominal cavity sharply. Some adhesive band appreciated, divided, and th e bowel obstruction relieved. Adhesive band was in the right lower quadrant. There were some adhesi ons of small bowel taken down carefully. A partial serosal tears were closed with interrupted Lember t suture of 3-0 silk and no enterotomies sustained. Abdominal cavity irrigated, small bowel run thre e times from ligament of Treitz to the cecum and small bowel was healthy. Abdominal cavity irrigated and irrigant evacuated. Seprafilm placed when the viscera and abdominal wall, midline fascia closed with continuous suture of #1 PDS. Skin irrigated. Hemostasis gained with the cautery. Skin approx imated continuous suture of 4-0 Monocryl. Laparoscopic incision port was closed with interrupted 4-0 Monocryl subdermal. Glue applied. Left subclavian vein triple lumen catheter was placed using Seldinger technique after sterile ChloraP rep and removed the J-wire, securing the catheter 3-0 silk suture. Sterile dressings applied. Patie nt tolerated the procedure well.
[2018-07-12 05:38] LABS: #Lymphocytes 0.5 thou/uL (1.20-3.40); #Monocytes 0.7 thou/uL (0.11-0.59); #Neutrophils 5.3 thou/uL (1.40-6.50); %Basophils 0.3 % (0.0-1.0); %Eosinophils 0.1 % (0.0-10.0); %Lymphocytes 8.2 % (21.0-51.0); %Neutrophils 80.5 % (42.0-75.0); Mean Corpuscular HGB CONC 33.1 g/dL (32.0-36.0); Mean Corpuscular Hemoglobin 26.5 pg (27.0-31.0); Mean Platelet Volume 8.3 fL (7.4-10.4); Platelet Count 219 thou/uL (130-400); RBC Distribution Width 14.7 % (11.5-14.5); Red Blood Cell (RBC) Count 3.77 mill/uL (4.20-5.40); White Blood Cell (WBC) Count 6.6 thou/uL (4.8-10.8)
[2018-07-12 05:45] LABS: ALT (SGPT) 13 U/L (8-55); AST (SGOT) 18 U/L (5-34); Albumin 3.2 g/dL (3.4-4.8); Alkaline Phosphatase 47 U/L (40-150); Anion Gap 10 mmol/L (10-20); BUN (Urea Nitrogen) 13 mg/dL (9.8-20.1); Bilirubin, Total 0.5 mg/dL (0.2-1.2); Calc. Creatinine Clearance 46 mL/min (70-130); Calcium 7.9 mg/dL (7.8-10.44); Carbon Dioxide 24 mmol/L (23-31); Chloride 111 mmol/L (98-107); Estimated GFR-MDRD 69; Globulin 2.1 g/dL (2.4-3.5); Glucose 124 mg/dL (83-110); Potassium 3.4 mmol/L (3.5-5.1); Protein, Total 5.3 g/dL (6.0-8.3); Sodium 142 mmol/L (136-145)
[2018-07-12] MEDS: Famotidine/PF 20 mg/2ml Vial SLOW IVP SCH (09:52)
[2018-07-12] MEDS: Lactated Ringer's 1,000 ML IV SCH ×3 (09:54→20:54)
--- NOTE | 2018-07-12 13:47 | PRG ---
DATE OF SERVICE: 07/12/2018 SUBJECTIVE: Ms. Deras is doing well, postoperative day #1, laparoscopy converted to laparotomy for hiro wel obstruction, adhesiolysis, releasing a single obstructive adhesive band. OBJECTIVE: VITAL SIGNS: Temperature 98.3 degrees, pulse 61, blood pressure 144/73. Prior to the operation yest erday, her NG tube had put out 1800 mL; since the operation last night, it has only put out less than 75 mL. GENERAL: The patient feels much better. Abdominal pain is resolved. She has not passed any flatus or stool. LUNGS: Clear to auscultation. CARDIAC: Regular rate and rhythm without murmur, rub, or gallop. ABDOMEN: Soft and nontender. Surgical wound looks good. Bowel sounds present. LABORATORY DATA: White count 6, hemoglobin 10. Sodium 142, potassium 3.4, chloride 111, glucose 124 . ASSESSMENT AND PLAN: Doing well after laparotomy, adhesiolysis. I have removed her NG tube. We anjelica l keep her n.p.o. except for ice chips and sips. Dr. Petty is covering over the weekend, and we wi ll advance her diet as appropriate based on clinical exam and course tomorrow. Expected to be discha rged home over the weekend. She should follow up in my office in 2-3 weeks.
[2018-07-12] MEDS: Dronedarone HCl 400 MG TAB PO SCH (16:43)
[2018-07-12] MEDS: Enoxaparin Sodium 40 MG/0.4 ML SYRINGE SC SCH (20:54)
[2018-07-13] MEDS: Acetaminophen 1,000 MG in Premix Bag 1 BAG IVPB SCH ×3 (06:08→17:56)
[2018-07-13] MEDS: Lisinopril 5 MG TAB PO SCH (10:10)
[2018-07-13] MEDS: Famotidine/PF 20 mg/2ml Vial SLOW IVP SCH (10:10)
[2018-07-13] MEDS: Dronedarone HCl 400 MG TAB PO SCH ×2 (10:10→17:55)
[2018-07-13] MEDS: Lactated Ringer's 1,000 ML IV SCH ×2 (11:47→21:41)
[2018-07-13] MEDS: Enoxaparin Sodium 40 MG/0.4 ML SYRINGE SC SCH (21:41)
--- NOTE | 2018-07-13 22:41 | PDOC.GSPN ---
Surgery Progress Note: Subj - Subjective Narrative: Patient is feeling much better today. Her NG tube is out and she is tolerating her eyes chips. She has passed gas twice and is hungry. She is afebrile with normal vital signs and urine output is adequate. Her abdomen is soft and nondistended and bowel sounds are present. Assessment/plan: Status post laparotomy for small bowel obstruction with returning GI function. We will advance her to clears. Surgery Progress Note: Obj - Vital signs Vital signs: Vital Signs - Most Recent Temp Pulse Resp BP Pulse Ox 98.8 F 53 L 16 136/65 97 07/13/18 19:29 07/13/18 19:29 07/13/18 19:29 07/13/18 19:29 07/13/18 19:29 Surgery Progress Note: Results - Labs Result Diagrams: 07/12/18 03:52 07/12/18 03:52
[2018-07-14] MEDS: Acetaminophen 1,000 MG in Premix Bag 1 BAG IVPB SCH ×4 (00:51→18:07)
[2018-07-14] MEDS: Lactated Ringer's 1,000 ML IV SCH ×2 (05:41→16:39)
[2018-07-14 06:18] LABS: #Eosinphils 0.1 thou/uL (0.0-0.7); #Lymphocytes 0.9 thou/uL (1.20-3.40); #Monocytes 0.4 thou/uL (0.11-0.59); #Neutrophils 2.6 thou/uL (1.40-6.50); %Basophils 0.7 % (0.0-1.0); %Lymphocytes 23.2 % (21.0-51.0); %Monocytes 9.4 % (0.0-10.0); %Neutrophils 63.8 % (42.0-75.0); Hemoglobin 8.8 g/dL (12.0-16.0); Mean Corpuscular HGB CONC 33.4 g/dL (32.0-36.0); Mean Corpuscular Hemoglobin 27.4 pg (27.0-31.0); Mean Corpuscular Volume 81.9 fL (78.0-98.0); Mean Platelet Volume 7.8 fL (7.4-10.4); Platelet Count 201 thou/uL (130-400); RBC Distribution Width 14.2 % (11.5-14.5); Red Blood Cell (RBC) Count 3.22 mill/uL (4.20-5.40)
[2018-07-14 06:36] LABS: Anion Gap 9 mmol/L (10-20); BUN (Urea Nitrogen) 9 mg/dL (9.8-20.1); Calc. Creatinine Clearance 48 mL/min (70-130); Calcium 7.8 mg/dL (7.8-10.44); Carbon Dioxide 26 mmol/L (23-31); Chloride 107 mmol/L (98-107); Estimated GFR-MDRD 73; Glucose 76 mg/dL (83-110); Potassium 3.1 mmol/L (3.5-5.1); Sodium 139 mmol/L (136-145)
[2018-07-14] MEDS: Lisinopril 5 MG TAB PO SCH (08:38)
[2018-07-14] MEDS: Famotidine/PF 20 mg/2ml Vial SLOW IVP SCH (08:38)
[2018-07-14] MEDS: Dronedarone HCl 400 MG TAB PO SCH ×2 (08:38→18:04)
[2018-07-14] MEDS: Scopolamine 1.5 mg/72 hour Patch TD SCH (15:15)
--- NOTE | 2018-07-14 16:45 | PDOC.GSPN ---
Surgery Progress Note: Subj - Subjective Narrative: Patient is feeling good. She had a bowel movement early this morning and is tolerating her liquid diet without nausea or distention. Abdomen is soft and nondistended with only minimal felipe-incisional tenderness. Her incisions are clean dry and intact. I will start on full liquids and advance her to soft if she tolerates full liquids. She may be discharged home tomorrow. Surgery Progress Note: Obj - Vital signs Vital signs: Vital Signs - Most Recent Temp Pulse Resp BP Pulse Ox 98.7 F 61 14 164/76 H 97 07/14/18 16:00 07/14/18 16:00 07/14/18 16:00 07/14/18 16:00 07/14/18 16:00 Surgery Progress Note: Results - Labs Result Diagrams: 07/14/18 05:54 07/14/18 05:54 Lab results: Laboratory Results - last 24 hr 07/14/18 07/14/18 05:54 05:54 WBC 4.0 L RBC 3.22 L Hgb 8.8 L Hct 26.4 L MCV 81.9 MCH 27.4 MCHC 33.4 RDW 14.2 Plt Count 201 MPV 7.8 Neutrophils % 63.8 Lymphocytes % 23.2 Monocytes % 9.4 Eosinophils % 3.0 Basophils % 0.7 Neutrophils # 2.6 Lymphocytes # 0.9 L Monocytes # 0.4 Eosinophils # 0.1 Basophils # 0.0 Sodium 139 Potassium 3.1 L Chloride 107 Carbon Dioxide 26 Anion Gap 9 L BUN 9 L Creatinine 0.76 Estimated GFR (MDRD) 73 Glucose 76 L Calcium 7.8
[2018-07-14] MEDS: Enoxaparin Sodium 40 MG/0.4 ML SYRINGE SC SCH (21:57)
[2018-07-15] MEDS: Acetaminophen 1,000 MG in Premix Bag 1 BAG IVPB SCH (00:53)
[2018-07-15] MEDS: Lactated Ringer's 1,000 ML IV SCH (01:08)
[2018-07-15] MEDS: Dronedarone HCl 400 MG TAB PO SCH (08:05)
[2018-07-15] MEDS: Lisinopril 5 MG TAB PO SCH (08:05)
[2018-07-15] MEDS: Famotidine/PF 20 mg/2ml Vial SLOW IVP SCH (08:06)
[2018-07-15 10:02] LABS: #Eosinphils 0.1 thou/uL (0.0-0.7); #Monocytes 0.4 thou/uL (0.11-0.59); #Neutrophils 2.7 thou/uL (1.40-6.50); %Basophils 0.7 % (0.0-1.0); %Eosinophils 3.1 % (0.0-10.0); %Lymphocytes 22.4 % (21.0-51.0); %Monocytes 9.4 % (0.0-10.0); %Neutrophils 64.5 % (42.0-75.0); Hemoglobin 9.5 g/dL (12.0-16.0); Mean Corpuscular HGB CONC 33.2 g/dL (32.0-36.0); Mean Corpuscular Hemoglobin 27.2 pg (27.0-31.0); Mean Corpuscular Volume 82.1 fL (78.0-98.0); Platelet Count 223 thou/uL (130-400); RBC Distribution Width 14.8 % (11.5-14.5); Red Blood Cell (RBC) Count 3.49 mill/uL (4.20-5.40); White Blood Cell (WBC) Count 4.2 thou/uL (4.8-10.8)
[2018-07-15 10:16] LABS: Anion Gap 6 mmol/L (10-20); BUN (Urea Nitrogen) 7 mg/dL (9.8-20.1); Calc. Creatinine Clearance 48 mL/min (70-130); Calcium 8.1 mg/dL (7.8-10.44); Carbon Dioxide 28 mmol/L (23-31); Chloride 108 mmol/L (98-107); Estimated GFR-MDRD 72; Glucose 93 mg/dL (83-110); Potassium 3.6 mmol/L (3.5-5.1); Sodium 138 mmol/L (136-145)
[2018-07-15 11:40] VITALS: BP 127/72; TEMP 97.6
--- NOTE | 2018-07-17 10:48 | DIS ---
DATE OF ADMISSION: 07/10/2018 DATE OF DISCHARGE: 07/15/2018 DISCHARGE DIAGNOSIS: Small bowel obstruction. PROCEDURES DURING THIS HOSPITALIZATION: CT scan of abdomen and pelvis from the emergency room, abdom inal x-rays, small bowel follow through, 07/11/2018, laparoscopy converted to laparotomy with adhesio lysis, left subclavian vein central line. Findings, small bowel obstruction, adhesions from prior almanza rgery. Follow up in my office in 2-3 weeks. DISCHARGE MEDICATIONS: Resume her Eliquis, Multaq, lisinopril, [id number] Tylenol, ibuprofen f or pain. No lifting over 25 pounds for 6 weeks. HISTORY: A 78-year-old female presenting with abdominal obstructive symptoms, verified by CAT scan, admitted, given IV fluids, hydration. Observed with an NG tube, repeated abdominal x-rays, small bow el follow through documenting small bowel obstruction requiring operative intervention, undergoing an d discharged home on the date described. FOLLOWUP: As noted.
== END 2018-07-15 15:52 | disposition home or self-care (01) | DRG 337 ==
LOC: ERS 01:50 → SURG A 05:57
PROVIDERS: ADMIT Specialist; ATTEND Specialist
PROC: 0DN80ZZ Release Small Intestine, Open Approach (ICD-10-PCS; principal; 2018-07-11)
PROC: 0D9880Z Drainage of Small Intestine with Drainage Device, Via Natural or Artificial Opening Endoscopic (ICD-10-PCS; 2018-07-11)
DX: K56.50 Intestinal adhesions [bands], unspecified as to partial versus complete obstruction (principal); Y83.8 Other surgical procedures as the cause of abnormal reaction of the patient, or of later complication, without mention of misadventure at the time of the procedure; Z53.31 Laparoscopic surgical procedure converted to open procedure; I48.91 Unspecified atrial fibrillation; Z79.01 Long term (current) use of anticoagulants; I10 Essential (primary) hypertension; E78.00 Pure hypercholesterolemia, unspecified
CPT/HCPCS: 36415; 71045; 74018; 74022; 74177; 74250; 80048; 80053; 81003; 81015; 83690; 85025; 86850; 86900; 86901; 93005; 96361; 96374; 96375; A4216; J0131; J0670; J1100; J1650; J1885; J2001; J2185; J2270; J2405; J2550; J2704; J3010; J7050; S0028

== ENCOUNTER 2018-11-14 13:19 | Outpatient (CLI) | payer MEDICARE ==
--- NOTE | 2018-11-14 14:17 | RAD ---
LEFT HAND THREE VIEWS: History: Pain in left thumb with swelling. FINDINGS: There are degenerative changes most prominent at the first carpal metacarpal joint. No fracture or di slocation or bony destruction is identified. POS: OFF
== END 2018-11-14 13:20 | disposition home or self-care (01) ==
LOC: BICRAD 13:19
PROVIDERS: ATTEND Family Medicine
DX: M79.645 Pain in left finger(s) (principal); M18.12 Unilateral primary osteoarthritis of first carpometacarpal joint, left hand
CPT/HCPCS: 36415; 84550; 85025

== ENCOUNTER 2019-05-07 12:42 | Outpatient (CLI) | payer MEDICARE ==
--- NOTE | 2019-05-07 13:19 | MMO ---
Bilateral MAMMO Bilat Screen [facility]. CLINICAL HISTORY: Patient is 79 years old and is seen for screening. The patient has no family history of breast cancer. The patient has no personal history of cancer. VIEWS: The views performed were: bilateral craniocaudal with tomosynthesis and bilateral mediolateral oblique with tomosynthesis. FILMS COMPARED: The present examination has been compared to prior imaging studies performed at [facility] on 03/22/2015, 04/03/2016, 04/10/2017 and 05/02/2018. MAMMOGRAM FINDINGS: The breasts are extremely dense, which may lower the sensitivity of mammography. There are stable benign appearing calcifications seen in both breasts. There are no suspicious masses, suspicious calcifications, or new areas of architectural distortion. IMPRESSION: THERE IS NO MAMMOGRAPHIC EVIDENCE OF MALIGNANCY. A ROUTINE FOLLOW-UP MAMMOGRAM IN 1 YEAR IS RECOMMENDED. THE RESULTS OF THIS EXAM WERE SENT TO THE PATIENT. ACR BI-RADS Category 2 - Benign finding MAMMOGRAPHY NOTE: 1. A negative mammogram report should not delay a biopsy if a dominant of clinically suspicious mass is present. 2. Approximately 10% to 15% of breast cancers are not detected by mammography. 3. Adenosis and dense breasts may obscure an underlying neoplasm.
--- NOTE | 2019-05-07 13:36 | BD ---
EXAM: DEXA bone density examination HISTORY: 79-year-old postmenopausal female for screening COMPARISON: 04/10/2017 FINDINGS: L1--bone mineral density 0.850 g/sq cm; T score -1.3 L2--bone mineral density 0.954 g/sq cm; T score -0.7 L3--bone mineral density 0.915 g/sq cm; T score -1.5 L4--bone mineral density 1.007 g/sq cm; T score -0.5 Total L1-L4--bone mineral density 0.935 g/sq cm; T score -1.0 Left femoral neck--bone mineral density0.611; T score -2.1 Total proximal left femur--bone mineral density 0.830; T score -0.9 IMPRESSION: Osteopenia. When compared to the prior study, the bone density in the left hip has increa sed approximately 9% and the bone density in the spine has not changed significantly.
== END 2019-05-07 12:43 | disposition home or self-care (01) ==
LOC: BICMAMMO 12:42
PROVIDERS: ATTEND Family Medicine
DX: Z12.31 Encounter for screening mammogram for malignant neoplasm of breast (principal); M81.0 Age-related osteoporosis without current pathological fracture; M85.89 Other specified disorders of bone density and structure, multiple sites
CPT/HCPCS: 77063; 77067; 77080

== ENCOUNTER 2020-05-12 12:57 | Outpatient (CLI) | payer MEDICARE ==
--- NOTE | 2020-05-12 13:41 | MMO ---
Bilateral MAMMO Bilat Screen [facility]. CLINICAL HISTORY: Patient is 80 years old and is seen for screening. The patient has no family history of breast cancer. The patient has no personal history of cancer. The patient has a history of bilateral Excisional Biopsy in 1990s - benign. VIEWS: The views performed were: bilateral craniocaudal with tomosynthesis and bilateral mediolateral oblique with tomosynthesis. FILMS COMPARED: The present examination has been compared to prior imaging studies performed at [facility] on 04/03/2016, 04/10/2017, 05/02/2018 and 05/07/2019. This study has been interpreted with the assistance of computer-aided detection. MAMMOGRAM FINDINGS: The breasts are extremely dense, which may lower the sensitivity of mammography. There are stable benign appearing calcifications seen in both breasts. There are no suspicious masses, suspicious calcifications, or new areas of architectural distortion. IMPRESSION: THERE IS NO MAMMOGRAPHIC EVIDENCE OF MALIGNANCY. A ROUTINE FOLLOW-UP MAMMOGRAM IN 1 YEAR IS RECOMMENDED. THE RESULTS OF THIS EXAM WERE SENT TO THE PATIENT. ACR BI-RADS Category 2 - Benign finding MAMMOGRAPHY NOTE: 1. A negative mammogram report should not delay a biopsy if a dominant of clinically suspicious mass is present. 2. Approximately 10% to 15% of breast cancers are not detected by mammography. 3. Adenosis and dense breasts may obscure an underlying neoplasm. Reported by: RICHARSDON HO MD Electonically Signed: [id number]
== END 2020-05-12 12:58 | disposition home or self-care (01) ==
LOC: BICMAMMO 12:57
PROVIDERS: ATTEND Family Medicine
DX: Z12.31 Encounter for screening mammogram for malignant neoplasm of breast (principal); Z91.89 Other specified personal risk factors, not elsewhere classified
CPT/HCPCS: 36415; 77063; 77067; 80048

== ENCOUNTER 2021-05-24 10:03 | Outpatient (CLI) | payer MEDICARE | END 2021-05-24 10:04 | disposition home or self-care (01) | LOC: BICMAMMO 10:03 | PROVIDERS: ATTEND Family Medicine | DX: Z12.31 Encounter for screening mammogram for malignant neoplasm of breast (principal); Z91.89 Other specified personal risk factors, not elsewhere classified | CPT/HCPCS: 77063; 77067 ==

== ENCOUNTER 2022-05-05 11:54 | Outpatient (CLI) | payer MEDICARE | END 2022-05-05 11:55 | disposition home or self-care (01) | LOC: BICRAD 11:54 | PROVIDERS: ATTEND Physician Assistant | DX: R06.02 Shortness of breath (principal) | CPT/HCPCS: 71046 ==

== ENCOUNTER 2022-05-29 12:43 | Outpatient (CLI) | payer MEDICARE | END 2022-05-29 12:44 | disposition home or self-care (01) | LOC: BICMAMMO 12:43 | PROVIDERS: ATTEND Family Medicine | DX: Z12.31 Encounter for screening mammogram for malignant neoplasm of breast (principal); M81.0 Age-related osteoporosis without current pathological fracture; M85.89 Other specified disorders of bone density and structure, multiple sites; Z91.89 Other specified personal risk factors, not elsewhere classified | CPT/HCPCS: 77063; 77067; 77080 ==

== ENCOUNTER 2023-06-12 12:51 | Outpatient (CLI) | payer MEDICARE | END 2023-06-12 12:52 | disposition home or self-care (01) | LOC: BICMAMMO 12:51 | PROVIDERS: ATTEND Family Medicine | DX: Z12.31 Encounter for screening mammogram for malignant neoplasm of breast (principal); Z91.89 Other specified personal risk factors, not elsewhere classified | CPT/HCPCS: 77063; 77067 ==

== ENCOUNTER 2024-01-04 12:10 | Outpatient (CLI) | payer MEDICARE | END 2024-01-04 12:11 | disposition home or self-care (01) | LOC: ULT 12:10 | PROVIDERS: ATTEND Family Medicine | DX: R60.0 Localized edema (principal) ==

== ENCOUNTER 2024-12-10 13:13 | Outpatient (CLI) | payer MEDICARE | END 2024-12-10 13:14 | disposition home or self-care (01) | LOC: BICULT 13:13 | PROVIDERS: ATTEND Family Medicine | DX: E05.90 Thyrotoxicosis, unspecified without thyrotoxic crisis or storm (principal) | CPT/HCPCS: 76536 ==

== ENCOUNTER 2025-06-17 12:34 | Outpatient (CLI) | payer MEDICARE | END 2025-06-17 12:35 | disposition home or self-care (01) | LOC: BICMAMMO 12:34 | PROVIDERS: ATTEND Family Medicine | DX: Z12.31 Encounter for screening mammogram for malignant neoplasm of breast (principal); Z80.3 Family history of malignant neoplasm of breast; Z91.89 Other specified personal risk factors, not elsewhere classified | CPT/HCPCS: 77063; 77067 ==